=== PATIENT | female | born 1985 | race Caucasian/White ===

== ENCOUNTER 2017-02-03 06:50 | Emergency (ER) | payer MEDICAID ==
[2017-02-03 07:04] VITALS: BP 157/85
--- NOTE | 2017-02-06 06:51 | ED Elopement Review ---
ED Pt Elopement review - Call Back decision Pt Call Back Decision: No action required
== END 2017-02-03 15:15 ==
LOC: ED 06:50
DX: R10.9 Unspecified abdominal pain (principal); Z53.21 Procedure and treatment not carried out due to patient leaving prior to being seen by health care provider

== ENCOUNTER 2017-05-17 07:06 | Emergency (ER) | payer MEDICAID ==
[2017-05-17 07:21] VITALS: BP 139/61
[2017-05-17 07:44] LABS: Basophils % (Auto) 0.7 % (0.0-1.8); Eosinophils % (Auto) 1.2 % (0.0-4.3); Hematocrit 36.1 % (30.3-42.9); Hemoglobin 11.7 gm/dl (10.1-14.3); Mean Corpuscular HGB Conc 32 % (30-34); Mean Corpuscular Hemoglobin 27 pg (28-32); Mean Corpuscular Volume 82 fl (79-97); Platelet Count 184 K/mm3 (140-440); Red Cell Distribution Width 14.5 % (13.2-15.2); White Blood Count 10.3 K/mm3 (4.5-11.0)
[2017-05-17 08:30] LABS: Alanine Aminotransferase 12 units/L (7-56); Albumin 3.4 g/dL (3.9-5); Albumin/Globulin Ratio 0.9 %; Alkaline Phosphatase 62 units/L (35-129); Anion Gap 16 mmol/L; BUN/Creatinine Ratio 22.85; Blood Urea Nitrogen 16 mg/dL (7-17); Calcium 8.6 mg/dL (8.4-10.2); Carbon Dioxide 25 mmol/L (22-30); Chloride 103.4 mmol/L (98-107); Glucose 112 mg/dL (65-100); Lipase 45 units/L (13-60); Potassium 4.1 mmol/L (3.6-5.0); Sodium 140 mmol/L (137-145); Total Protein 7.2 g/dL (6.3-8.2)
[2017-05-17 10:39] LABS: Bilirubin,Urine NEG (Negative); Blood,Urine NEG (Negative); Ketones,Urine NEG (Negative); Leukocyte Esterase,Urine MOD (Negative); Nitrite,Urine NEG (Negative); Protein,Urine <15 mg/dL mg/dL (Negative); Urobilinogen,Urine < 2.0 mg/dL (<2.0)
== END 2017-05-17 07:35 | disposition left against medical advice (07) ==
LOC: ED 07:06
DX: R10.30 Lower abdominal pain, unspecified (principal); J45.909 Unspecified asthma, uncomplicated; E66.01 Morbid (severe) obesity due to excess calories; Z53.21 Procedure and treatment not carried out due to patient leaving prior to being seen by health care provider
CPT/HCPCS: 36415; 80053; 81001; 83690; 84703; 85025

== ENCOUNTER 2017-05-28 05:48 | Emergency (ER) | payer MEDICAID ==
[2017-05-28 06:25] LABS: Basophils % (Auto) 0.6 % (0.0-1.8); Eosinophils % (Auto) 1.1 % (0.0-4.3); Hematocrit 34.7 % (30.3-42.9); Hemoglobin 11.3 gm/dl (10.1-14.3); Mean Corpuscular HGB Conc 33 % (30-34); Mean Corpuscular Hemoglobin 27 pg (28-32); Mean Corpuscular Volume 82 fl (79-97); Platelet Count 196 K/mm3 (140-440); Red Blood Count 4.22 M/mm3 (3.65-5.03); Red Cell Distribution Width 14.2 % (13.2-15.2); White Blood Count 9.3 K/mm3 (4.5-11.0)
[2017-05-28 06:36] LABS: Alanine Aminotransferase 11 units/L (7-56); Albumin 3.3 g/dL (3.9-5); Albumin/Globulin Ratio 0.9 %; Alkaline Phosphatase 54 units/L (35-129); Anion Gap 17 mmol/L; BUN/Creatinine Ratio 17.14; Blood Urea Nitrogen 12 mg/dL (7-17); Calcium 8.2 mg/dL (8.4-10.2); Carbon Dioxide 23 mmol/L (22-30); Chloride 101.6 mmol/L (98-107); Glucose 147 mg/dL (65-100); Lipase 43 units/L (13-60); Potassium 3.7 mmol/L (3.6-5.0); Sodium 138 mmol/L (137-145); Total Protein 6.8 g/dL (6.3-8.2)
--- NOTE | 2017-05-28 08:58 | Emergency Department Report ---
ED Abdominal Pain HPI - General Chief Complaint: Abdominal Pain Stated Complaint: ABD PAIN Time Seen by Provider: 05/28/17 08:57 Source: patient Mode of arrival: Ambulatory Limitations: No Limitations - History of Present Illness Initial Comments: She complained of lower abdominal discomfort which was crampy and intermittent and now resolved. She states that she had diarrhea for 4-5 days. She is concerned that because she had a break in her water line at home she might have drank contaminated water. She states the diarrhea is improving. She has no nausea or vomiting. She's had no signs of GI bleeding. She is not in any discomfort at the present time. She states her colostomy bag is empty well. She denies fever or chills. MD Complaint: abdominal pain -: Gradual, days(s) Location: LLQ, RLQ Radiation: none Migration to: no migration Severity: mild Severity scale (0 -10): 4 Quality: stabbing Consistency: intermittent, now resolved Improves With: nothing Worsens With: nothing Context: other (history of colitis) Associated Symptoms: denies other symptoms - Related Data Previous Rx's Medication Instructions Recorded Last Taken Type Ciprofloxacin HCl [Ciprofloxacin 500 mg PO BID #20 tablet 09/22/16 Unknown Rx TAB] metroNIDAZOLE [Flagyl] 500 mg PO Q12HR #20 tab 09/22/16 Unknown Rx traMADol [Ultram] 50 mg PO Q6HR PRN #10 tablet 05/28/17 Unknown Rx Allergies Allergy/AdvReac Type Severity Reaction Status Date / Time No Known Allergies Allergy Verified 05/17/17 07:16 ED Review of Systems ROS: Stated complaint: ABD PAIN Other details as noted in HPI Constitutional: denies: chills, fever Eyes: denies: eye pain, eye discharge, vision change ENT: denies: ear pain, throat pain Respiratory: denies: cough, shortness of breath, wheezing Cardiovascular: denies: chest pain, palpitations Endocrine: no symptoms reported Gastrointestinal: abdominal pain, diarrhea. denies: nausea Genitourinary: denies: urgency, dysuria, discharge Musculoskeletal: denies: back pain, joint swelling, arthralgia Skin: denies: rash, lesions Neurological: denies: headache, weakness, paresthesias Psychiatric: denies: anxiety, depression Hematological/Lymphatic: denies: easy bleeding, easy bruising ED Past Medical Hx - Past Medical History Previous Medical History?: Yes Hx Diabetes: No Hx Liver Disease: No Hx Renal Disease: No Hx Sickle Cell Disease: No Hx Seizures: No Hx Asthma: Yes (SINCE CHILDHOOD) Hx COPD: No Hx HIV: No Additional medical history: DIVERTICULITIS. MORBID OBESITY/ colostomy - Surgical History Past Surgical History?: Yes Additional Surgical History: "WASHED STOMACH OUT-LEAKING INTESTINES". COLOSTOMY - Social History Smoking Status: Never Smoker Substance Use Type: None - Medications Home Medications: Home Medications Medication Instructions Recorded Confirmed Last Taken Type Ciprofloxacin HCl [Ciprofloxacin 500 mg PO BID #20 tablet 09/22/16 Unknown Rx TAB] metroNIDAZOLE [Flagyl] 500 mg PO Q12HR #20 tab 09/22/16 Unknown Rx traMADol [Ultram] 50 mg PO Q6HR PRN #10 tablet 05/28/17 Unknown Rx ED Physical Exam - General Limitations: No Limitations General appearance: alert, in no apparent distress - Head Head exam: Present: atraumatic, normocephalic - Eye Eye exam: Present: normal appearance. Absent: scleral icterus - ENT ENT exam: Present: normal exam, mucous membranes moist - Neck Neck exam: Present: normal inspection. Absent: tenderness, meningismus - Respiratory Respiratory exam: Present: normal lung sounds bilaterally. Absent: respiratory distress - Cardiovascular Cardiovascular Exam: Present: regular rate, normal rhythm. Absent: systolic murmur, diastolic murmur, rubs, gallop - GI/Abdominal GI/Abdominal exam: Present: soft, normal bowel sounds, other (colostomy bag with stool present). Absent: distended, tenderness, guarding, rebound, rigid - Extremities Exam Extremities exam: Present: normal inspection - Back Exam Back exam: Present: normal inspection - Neurological Exam Neurological exam: Present: alert, oriented X3, CN II-XII intact. Absent: motor sensory deficit - Psychiatric Psychiatric exam: Present: normal affect, normal mood - Skin Skin exam: Present: warm, dry, intact, normal color. Absent: rash ED Course Vital Signs 05/28/17 05/28/17 05:50 08:25 Temperature 98.6 F Pulse Rate 83 Respiratory 20 20 Rate Blood Pressure 148/92 [Right] O2 Sat by Pulse 96 96 Oximetry - Reevaluation(s) Reevaluation #1: Patient is appropriate for outpatient management. She will have stool studies sent. She has not recently been in the hospital. 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 05/28/17 09:12 ED Medical Decision Making - Lab Data Result diagrams: 05/28/17 05:58 05/28/17 05:58 Laboratory Results - last 24 hr 05/28/17 05/28/17 05/28/17 05:58 05:58 05:58 WBC 9.3 RBC 4.22 Hgb 11.3 Hct 34.7 MCV 82 MCH 27 L MCHC 33 RDW 14.2 Plt Count 196 Lymph % (Auto) 25.6 [place] % (Auto) 4.9 Eos % (Auto) 1.1 Baso % (Auto) 0.6 Lymph # 2.4 [place] # 0.5 Eos # 0.1 Baso # 0.1 Seg Neutrophils % 67.8 Seg Neutrophils # 6.3 Sodium 138 Potassium 3.7 Chloride 101.6 Carbon Dioxide 23 Anion Gap 17 BUN 12 Creatinine 0.7 Estimated GFR > 60 BUN/Creatinine Ratio 17.14 Glucose 147 H Calcium 8.2 L Total Bilirubin 0.30 AST 14 ALT 11 Alkaline Phosphatase 54 Total Protein 6.8 Albumin 3.3 L Albumin/Globulin Ratio 0.9 Lipase 43 HCG, Qual Negative Critical care attestation.: If time is entered above; I have spent that time in minutes in the direct care of this critically ill patient, excluding procedure time. ED Disposition Clinical Impression: Hyperglycemia Diarrhea Qualifiers: Diarrhea type: unspecified type Qualified Code(s): R19.7 - Diarrhea, unspecified Abdominal pain Qualifiers: Abdominal location: unspecified location Qualified Code(s): R10.9 - Unspecified abdominal pain Disposition: - TO HOME OR SELFCARE Is pt being admited?: No Does the pt Need Aspirin: No Condition: Stable Instructions: Abdominal Pain (ED), Acute Diarrhea (ED), Diabetic Hyperglycemia (ED) Additional Instructions: Follow-up with Dr. Hammonds, your primary care doctor or GI specialist see referral for results of your stool test. Return any acute change or problem. There is a possibility of type 2 diabetes. Follow-up on that. Prescriptions: traMADol [Ultram] 50 mg PO Q6HR PRN #10 tablet PRN Reason: Pain Referrals: PRIMARY CAREMD [Primary Care Provider] - 3-5 Days ROSANNA HAMMONDS MD [Staff Physician] - 2-3 Days [facility] [Provider Group] - 2-3 Days Time of Disposition: 09:15
[2017-05-28 09:34] VITALS: BP 138/89
== END 2017-05-28 09:34 | disposition home or self-care (01) ==
LOC: ED 05:48
DX: R73.9 Hyperglycemia, unspecified (principal); J45.909 Unspecified asthma, uncomplicated; R10.9 Unspecified abdominal pain; R19.7 Diarrhea, unspecified
CPT/HCPCS: 36415; 80053; 83690; 84703; 85007; 85025; 87045; 87177; 87493; 99283

== ENCOUNTER 2018-08-03 09:14 | Emergency (ER) | payer SELFPAY ==
[2018-08-03 09:47] VITALS: BP 150/88
[2018-08-03 10:49] LABS: Bacteria,Urine 1+ /HPF (Negative); Bilirubin,Urine NEG (Negative); Blood,Urine NEG (Negative); Color,Urine Yellow (Yellow); Mucus,Urine FEW /HPF; Protein,Urine <15 mg/dL mg/dL (Negative); Urobilinogen,Urine < 2.0 mg/dL (<2.0)
[2018-08-03 11:06] LABS: Basophils # (Auto) 0.1 K/mm3 (0.0-0.1); Basophils % (Auto) 0.7 % (0.0-1.8); Eosinophils # (Auto) 0.1 K/mm3 (0.0-0.4); Eosinophils % (Auto) 1.6 % (0.0-4.3); Hematocrit 30.8 % (30.3-42.9); Hemoglobin 9.7 gm/dl (10.1-14.3); Lymphocytes % (Auto) 22.1 % (13.4-35.0); Mean Corpuscular HGB Conc 32 % (30-34); Mean Corpuscular Volume 74 fl (79-97); Monocytes # (Auto) 0.6 K/mm3 (0.0-0.8); Monocytes % (Auto) 6.5 % (0.0-7.3); Platelet Count 192 K/mm3 (140-440); Red Blood Count 4.19 M/mm3 (3.65-5.03); Red Cell Distribution Width 17.6 % (13.2-15.2)
[2018-08-03 11:12] LABS: Mean Corpuscular Hemoglobin 23 pg (28-32)
[2018-08-03 11:18] LABS: Alanine Aminotransferase 11 units/L (7-56); Albumin 3.5 g/dL (3.9-5); BUN/Creatinine Ratio 25; Blood Urea Nitrogen 15 mg/dL (7-17); Calcium 8.6 mg/dL (8.4-10.2); Hemolysis Index 7
--- NOTE | 2018-08-03 11:20 | Emergency Department Report ---
ED General Adult HPI - General Chief complaint: Abdominal Pain Stated complaint: STOMACH PAIN Time Seen by Provider: 08/03/18 10:03 Source: patient Mode of arrival: Ambulatory Limitations: No Limitations - History of Present Illness Initial comments: She presents to the emergency department with chief complaint of lower abdominal cramping 5 days. Patient states that she has a foul odor to her urine but denies any vaginal discharge or bleeding. Patient denies concerned for STDs. Patient has no other complaints. -: Gradual Location: abdomen Radiation: non-radiation Severity scale (0 -10): 3 Quality: burning, dull Consistency: constant Improves with: none Worsens with: none Associated Symptoms: denies other symptoms Treatments Prior to Arrival: none - Related Data Previous Rx's Medication Instructions Recorded Last Taken Type Ciprofloxacin HCl [Ciprofloxacin 500 mg PO BID #20 tablet 09/22/16 Unknown Rx TAB] metroNIDAZOLE [Flagyl] 500 mg PO Q12HR #20 tab 09/22/16 Unknown Rx traMADol [Ultram] 50 mg PO Q6HR PRN #10 tablet 05/28/17 Unknown Rx Cephalexin [Keflex] 500 mg PO QID #28 capsule 08/03/18 Unknown Rx Phenazopyridine [Pyridium] 200 mg PO TID #6 tab 08/03/18 Unknown Rx Allergies Allergy/AdvReac Type Severity Reaction Status Date / Time No Known Allergies Allergy Verified 05/17/17 07:16 ED Review of Systems ROS: Stated complaint: STOMACH PAIN Other details as noted in HPI Comment: All other systems reviewed and negative Constitutional: denies: chills, fever Eyes: denies: eye pain, eye discharge, vision change ENT: denies: ear pain, throat pain Respiratory: denies: cough, shortness of breath, wheezing Cardiovascular: denies: chest pain, palpitations Endocrine: no symptoms reported Gastrointestinal: denies: abdominal pain, nausea, diarrhea Genitourinary: denies: urgency, dysuria, discharge Musculoskeletal: denies: back pain, joint swelling, arthralgia Skin: denies: rash, lesions Neurological: denies: headache, weakness, paresthesias Psychiatric: denies: anxiety, depression Hematological/Lymphatic: denies: easy bleeding, easy bruising ED Past Medical Hx - Past Medical History Hx Diabetes: No Hx Liver Disease: No Hx Renal Disease: No Hx Sickle Cell Disease: No Hx Seizures: No Hx Asthma: Yes (SINCE CHILDHOOD) Hx COPD: No Hx HIV: No Additional medical history: DIVERTICULITIS. MORBID OBESITY/ colostomy - Surgical History Additional Surgical History: "WASHED STOMACH OUT-LEAKING INTESTINES". COLOSTOMY - Social History Smoking Status: Never Smoker Substance Use Type: Alcohol - Medications Home Medications: Home Medications Medication Instructions Recorded Confirmed Last Taken Type Ciprofloxacin HCl [Ciprofloxacin 500 mg PO BID #20 tablet 09/22/16 Unknown Rx TAB] metroNIDAZOLE [Flagyl] 500 mg PO Q12HR #20 tab 09/22/16 Unknown Rx traMADol [Ultram] 50 mg PO Q6HR PRN #10 tablet 05/28/17 Unknown Rx Cephalexin [Keflex] 500 mg PO QID #28 capsule 08/03/18 Unknown Rx Phenazopyridine [Pyridium] 200 mg PO TID #6 tab 08/03/18 Unknown Rx ED Physical Exam - General Limitations: No Limitations General appearance: alert, in no apparent distress - Head Head exam: Present: atraumatic, normocephalic - Eye Eye exam: Present: normal appearance - ENT ENT exam: Present: mucous membranes moist - Neck Neck exam: Present: normal inspection - Respiratory Respiratory exam: Present: normal lung sounds bilaterally. Absent: respiratory distress, wheezes, rales, rhonchi - Cardiovascular Cardiovascular Exam: Present: regular rate, normal rhythm. Absent: systolic murmur, diastolic murmur, rubs, gallop - GI/Abdominal GI/Abdominal exam: Present: soft, normal bowel sounds. Absent: distended, tenderness - Extremities Exam Extremities exam: Present: normal inspection - Back Exam Back exam: Present: normal inspection - Neurological Exam Neurological exam: Present: alert, oriented X3, CN II-XII intact. Absent: motor sensory deficit - Psychiatric Psychiatric exam: Present: normal affect, normal mood - Skin Skin exam: Present: warm, dry, intact, normal color. Absent: rash ED Course Vital Signs 08/03/18 09:44 Temperature 98.4 F Pulse Rate 18 L Respiratory 18 Rate Blood Pressure 150/88 O2 Sat by Pulse 100 Oximetry ED Medical Decision Making - Lab Data Result diagrams: 08/03/18 10:45 08/03/18 10:45 - Medical Decision Making Discussed results with the patient Critical care attestation.: If time is entered above; I have spent that time in minutes in the direct care of this critically ill patient, excluding procedure time. ED Disposition Clinical Impression: UTI (urinary tract infection) Disposition: DC- TO HOME OR SELFCARE Is pt being admited?: No Does the pt Need Aspirin: No Condition: Stable Instructions: Urinary Tract Infection in Women (ED) Additional Instructions: Return if worse Prescriptions: Cephalexin [Keflex] 500 mg PO QID #28 capsule Phenazopyridine [Pyridium] 200 mg PO TID #6 tab Referrals: PRIMARY CARE, [Primary Care Provider] - 3-5 Days Time of Disposition: 12:31
[2018-08-03 12:03] LABS: HCG Qualitative,Urine Negative (Negative)
== END 2018-08-03 12:39 | disposition home or self-care (01) ==
LOC: ED 09:14
DX: N39.0 Urinary tract infection, site not specified (principal); J45.909 Unspecified asthma, uncomplicated; E66.01 Morbid (severe) obesity due to excess calories
CPT/HCPCS: 36415; 80053; 81001; 81025; 85025; 99283

== ENCOUNTER 2018-12-31 11:55 | Emergency (ER) | payer MEDICAID ==
--- NOTE | 2018-12-31 12:32 | Emergency Department Report ---
Blank Doc - Documentation Documentation: Pt is 7 weeks gestation. The patient has not been seen for this . She is c/o lower abdominal cramping and vaginal spotting. She just notices when she wipes. Her LNMP was 11/06/18. She has a hx of diverticulitis with ostomy placement. She denies any blood thinners. /A2 This initial assessment diagnostic orders/clinical plan/treatment (s) is/Are subject change based on patient's health status, clinical progression and re- assessment by fellow clinical providers in the ED. Further treatment and work-up at subsequent clinical providers discretion. Patient/guardians urged not to elope from their condition may be serious if not clinically assessed and managed. Initial order include: vaginal US, UA, ABO and type, labs
[2018-12-31 13:16] LABS: Basophils # (Auto) 0.1 K/mm3 (0.0-0.1); Eosinophils # (Auto) 0.1 K/mm3 (0.0-0.4); Eosinophils % (Auto) 1.7 % (0.0-4.3); Hematocrit 28.5 % (30.3-42.9); Hemoglobin 9.1 gm/dl (10.1-14.3); Lymphocytes % (Auto) 23.8 % (13.4-35.0); Mean Corpuscular HGB Conc 32 % (30-34); Mean Corpuscular Volume 71 fl (79-97); Monocytes # (Auto) 0.5 K/mm3 (0.0-0.8); Monocytes % (Auto) 6.2 % (0.0-7.3); Platelet Count 208 K/mm3 (140-440); Red Blood Count 4.04 M/mm3 (3.65-5.03); Red Cell Distribution Width 18.6 % (13.2-15.2)
[2018-12-31 13:32] LABS: Bacteria,Urine 1+ /HPF (Negative); Bilirubin,Urine NEG (Negative); Blood,Urine SM (Negative); Color,Urine Yellow (Yellow); Protein,Urine <15 mg/dL mg/dL (Negative); Urobilinogen,Urine < 2.0 mg/dL (<2.0)
[2018-12-31 13:39] LABS: Alanine Aminotransferase 9 units/L (7-56); Albumin 3.4 g/dL (3.9-5); BUN/Creatinine Ratio 28; Blood Urea Nitrogen 14 mg/dL (7-17); Calcium 8.4 mg/dL (8.4-10.2); Hemolysis Index 5
--- NOTE | 2018-12-31 16:40 | Emergency Department Report ---
<ISIDRA MORTON - Last Filed: 12/31/18 16:39> ED HPI - General Chief complaint: Vaginal Bleeding Stated complaint: 7WKS/BLEEDING/PAIN Time Seen by Provider: 12/31/18 12:27 Source: patient Mode of arrival: Ambulatory Limitations: No Limitations - History of Present Illness Initial comments: is a 33-year-old female who is presenting with some lower abdominal crampiness last 2 days with some vaginal bleeding. Patient states that bleeding is spotting in nature. She denies any nausea vomiting diarrhea f talya chills or dysuria at this time. - Related Data Previous Rx's Medication Instructions Recorded Last Taken Type Ciprofloxacin HCl [Ciprofloxacin 500 mg PO BID #20 tablet 09/22/16 Unknown Rx TAB] metroNIDAZOLE [Flagyl] 500 mg PO Q12HR #20 tab 09/22/16 Unknown Rx traMADol [Ultram] 50 mg PO Q6HR PRN #10 tablet 05/28/17 Unknown Rx Phenazopyridine [Pyridium] 200 mg PO TID #6 tab 08/03/18 Unknown Rx Cephalexin [Keflex] 500 mg PO DAILY #10 capsule 10/05/18 Unknown Rx Hydrocortisone 1% [Hydrocortisone 1 applicatio TP TID #1 tube 10/05/18 Unknown Rx 1% CREAM] predniSONE [Deltasone] 20 mg PO DAILY #3 tablet 10/05/18 Unknown Rx Allergies Allergy/AdvReac Type Severity Reaction Status Date / Time No Known Allergies Allergy Verified 12/31/18 12:29 ED Review of Systems Comment: All other systems reviewed and negative ED Past Medical Hx - Past Medical History Hx Diabetes: No Hx Liver Disease: No Hx Renal Disease: No Hx Sickle Cell Disease: No Hx Seizures: No Hx Asthma: Yes (SINCE CHILDHOOD) Hx COPD: No Hx HIV: No Additional medical history: DIVERTICULITIS. MORBID OBESITY/ colostomy - Surgical History Additional Surgical History: "WASHED STOMACH OUT-LEAKING INTESTINES". COLOSTOMY - Social History Smoking Status: Never Smoker Substance Use Type: None - Medications Home Medications: Home Medications Medication Instructions Recorded Confirmed Last Taken Type Ciprofloxacin HCl [Ciprofloxacin 500 mg PO BID #20 tablet 09/22/16 Unknown Rx TAB] metroNIDAZOLE [Flagyl] 500 mg PO Q12HR #20 tab 09/22/16 Unknown Rx traMADol [Ultram] 50 mg PO Q6HR PRN #10 tablet 05/28/17 Unknown Rx Phenazopyridine [Pyridium] 200 mg PO TID #6 tab 08/03/18 Unknown Rx Cephalexin [Keflex] 500 mg PO DAILY #10 capsule 10/05/18 Unknown Rx Hydrocortisone 1% [Hydrocortisone 1 applicatio TP TID #1 tube 10/05/18 Unknown Rx 1% CREAM] predniSONE [Deltasone] 20 mg PO DAILY #3 tablet 10/05/18 Unknown Rx ED Physical Exam - General Limitations: No Limitations General appearance: alert, in no apparent distress - Head Head exam: Present: atraumatic, normocephalic - Eye Eye exam: Present: normal appearance - ENT ENT exam: Present: mucous membranes moist - Neck Neck exam: Present: normal inspection - Respiratory Respiratory exam: Present: normal lung sounds bilaterally. Absent: respiratory distress, wheezes, rales, rhonchi - Cardiovascular Cardiovascular Exam: Present: regular rate, normal rhythm. Absent: systolic murmur, diastolic murmur, rubs, gallop - GI/Abdominal GI/Abdominal exam: Present: soft, normal bowel sounds. Absent: distended, tend erness, guarding, rebound, rigid - Extremities Exam Extremities exam: Present: normal inspection - Back Exam Back exam: Present: normal inspection - Neurological Exam Neurological exam: Present: alert, oriented X3 - Psychiatric Psychiatric exam: Present: normal affect, normal mood - Skin Skin exam: Present: warm, dry, intact, normal color. Absent: rash ED Medical Decision Making - Lab Data Result diagrams: 12/31/18 12:56 12/31/18 12:56 Labs 12/31/18 12/31/18 12/31/18 12:56 12:56 12:56 WBC 8.2 RBC 4.04 Hgb 9.1 L Hct 28.5 L MCV 71 L MCH 23 L MCHC 32 RDW 18.6 H Plt Count 208 Lymph % (Auto) 23.8 [place] % (Auto) 6.2 Eos % (Auto) 1.7 Baso % (Auto) 1.0 Lymph # 2.0 [place] # 0.5 Eos # 0.1 Baso # 0.1 Seg Neutrophils % 67.3 Seg Neutrophils # 5.5 Sodium 138 Potassium 3.9 Chloride 102.4 Carbon Dioxide 24 Anion Gap 16 BUN 14 Creatinine 0.5 L Estimated GFR > 60 BUN/Creatinine Ratio 28 Glucose 105 H Calcium 8.4 Total Bilirubin < 0.20 AST 15 ALT 9 Alkaline Phosphatase 59 Total Protein 6.9 Albumin 3.4 L Albumin/Globulin Ratio 1.0 HCG, Quant 89595 H Urine Color Urine Turbidity Urine pH Ur Specific [place] Urine Protein Urine Glucose (UA) Urine Ketones Urine Blood Urine Nitrite Urine Bilirubin Urine Urobilinogen Ur Leukocyte Esterase Urine WBC (Auto) Urine RBC (Auto) U Epithel Cells (Auto) Urine Bacteria (Auto) Blood Type Antibody Screen Ord Rhogam Gestat Weeks 12/31/18 12/31/18 12:56 Unknown WBC RBC Hgb Hct MCV MCH MCHC RDW Plt Count Lymph % (Auto) [place] % (Auto) Eos % (Auto) Baso % (Auto) Lymph # [place] # Eos # Baso # Seg Neutrophils % Seg Neutrophils # Sodium Potassium Chloride Carbon Dioxide Anion Gap BUN Creatinine Estimated GFR BUN/Creatinine Ratio Glucose Calcium Total Bilirubin AST ALT Alkaline Phosphatase Total Protein Albumin Albumin/Globulin Ratio HCG, Quant Urine Color Yellow Urine Turbidity Clear Urine pH 5.0 Ur Specific [place] 1.024 Urine Protein <15 mg/dl Urine Glucose (UA) Neg Urine Ketones Neg Urine Blood Sm Urine Nitrite Neg Urine Bilirubin Neg Urine Urobilinogen < 2.0 Ur Leukocyte Esterase Sm Urine WBC (Auto) 5.0 Urine RBC (Auto) 1.0 U Epithel Cells (Auto) 8.0 Urine Bacteria (Auto) 1+ Blood Type A NEGATIVE Antibody Screen Negative Ord Rhogam Gestat Weeks <11 ED Disposition Clinical Impression: Threatened , Subchorionic hemorrhage in first trimester, Vaginal bleeding during Disposition: DC-01 TO HOME OR SELFCARE Condition: Stable Instructions: Threatened Miscarriage (ED), (ED) Additional Instructions: Make sure to follow up with the CLICKING MACHINE OPERATOR as discussed. Take all your medications as you've been prescribed. If you have any worsening symptoms or develop new symptoms please return to ED immediately. Referrals: ELIZABETH CLAYTON MD [Primary Care Provider] - 3-5 Days TRISTEN STEIN MD [Referring] - 3-5 Days JYOTI STEIN MD [Referring] - 3-5 Days ERENDIRA BUTLER MD [Referring] - 3-5 Days Forms: Accompanied Note, Work/School Release Form(ED) <NIMA KERN - Last Filed: 01/01/19 10:50> ED Review of Systems ROS: Stated complaint: 7WKS/BLEEDING/PAIN Other details as noted in HPI ED Course Vital Signs 12/31/18 12/31/18 12/31/18 12:27 15:21 18:05 Temperature 97.5 F L 98.8 F 97.8 F Pulse Rate 99 H 81 88 Respiratory 18 16 Rate Blood Pressure 157/84 163/81 Blood Pressure 166/90 [Left] O2 Sat by Pulse 100 100 Oximetry ED Medical Decision Making - Lab Data Result diagrams: 12/31/18 12:56 12/31/18 12:56 - Radiology Data Radiology results: report reviewed, image reviewed FINDINGS: Images demonstrate uterus to measure 12.5 x 7.5 x 7.8 cm. Within the uterus, there is a gestational sac. This gestational sac contains a yolk sac and a pole. heart rate measures 113 bpm. By crown-rump length of 5.4 mm, estimated gestational age is 6 weeks 2 days. There is a small subchorionic bleed measuring 0.9 x 1.3 x 1.4 cm. Right ovary measures 2.7 x 2.7 x 2.7 cm and contains a 2.4 cm cystic lesion which may represent a corpus luteal cyst . Left ovary measures 2.0 x 0.9 x 2.1 cm and is within normal limits. No free pelvic fluid. IMPRESSION: Single live intrauterine gestation at 6 weeks 2 days with estimated due date of 08/24/2019. Small subchorionic hemorrhage measuring 0.9 x 1.3 x 1.4 cm. Right ovarian 2.4 cm cystic lesion may represent corpus luteal cyst of . No free fluid.. This document is electronically signed by Maria Esther Hernandez MD., December 31 2018 05:11:30 PM ET Transcribed By: MP Dictated By: MARIA ESTHER HERNANDEZ Electronically Authenticated By: MARIA ESTHER HERNANDEZ Signed Date/Time: 12/31/18 6724 - Medical Decision Making 33-year-old female presents with bleeding during . Ultrasound shows patient has 6 weeks gestation. Patient received RhoGAM shot in the ED today at 3 PM. Discussed the patient to follow up with her CLICKING MACHINE OPERATOR. Referrals given Discussed with the patient, if symptoms worsen or she has new onset of symptoms to return to ED immediately. Critical care attestation.: If time is entered above; I have spent that time in minutes in the direct care of this critically ill patient, excluding procedure time. ED Disposition Is pt being admited?: No Does the pt Need Aspirin: No Time of Disposition: 17:57
--- NOTE | 2018-12-31 17:14 | Ultrasound Report ---
PROCEDURE: US OB TRANSVAGINAL, US OB <= 14 WEEKS FETUS TECHNIQUE: Transvaginal and transvesical pelvic obstetric sonographic imaging was performed HISTORY: 7 weeks gestation per LNMP LMP 11/06/2018, pelvic pain, 4, para 2 COMPARISONS: None FINDINGS: Images demonstrate uterus to measure 12.5 x 7.5 x 7.8 cm. Within the uterus, there is a gestational sac. This gestational sac contains a yolk sac and a p ole. heart rate measures 113 bpm. By crown-rump length of 5.4 mm, estimated gestational age is 6 weeks 2 days. There is a small subchorionic bleed measuring 0.9 x 1.3 x 1.4 cm. Right ovary measures 2.7 x 2.7 x 2.7 cm and contains a 2.4 cm cystic lesion which may represent a cor pus luteal cyst . Left ovary measures 2.0 x 0.9 x 2.1 cm and is within normal limits. No free pelvic fluid. IMPRESSION: Single live intrauterine gestation at 6 weeks 2 days with estimated due date of 08/24/2019. Small subchorionic hemorrhage measuring 0.9 x 1.3 x 1.4 cm. Right ovarian 2.4 cm cystic lesion may represent corpus luteal cyst of . No free fluid.. This document is electronically signed by Maria Esther Hernandez MD., December 31 2018 05:11:30 PM ET
[2018-12-31 18:41] VITALS: BP 166/90
== END 2018-12-31 18:05 | disposition home or self-care (01) ==
LOC: ED 11:55
DX: O20.0 Threatened abortion (principal); O99.511 Diseases of the respiratory system complicating pregnancy, first trimester; J45.909 Unspecified asthma, uncomplicated; O99.211 Obesity complicating pregnancy, first trimester; E66.01 Morbid (severe) obesity due to excess calories; Z3A.01 Less than 8 weeks gestation of pregnancy
CPT/HCPCS: 36415; 76801; 76817; 80053; 81001; 84702; 85025; 86850; 86900; 86901; 96372; 99284; J2790; 36430

== ENCOUNTER 2019-07-13 10:22 | Emergency (ER) | payer OTHER ==
[2019-07-13 10:30] VITALS: BP 160/73
--- NOTE | 2019-07-13 11:21 | Emergency Department Report ---
Minor Respiratory - HPI Chief Complaint: Upper Respiratory Infection Stated Complaint: POSS SINUS INFECTION Time Seen by Provider: 07/13/19 10:55 Duration: 2 Days Pain Location: Nose, Chest Severity: mild, moderate Minor Respiratory: Yes Sore Throat, Yes Able to Tolerate Fluids, Yes Cough, No Rhinorrhea, No Ear Pain, No Sick Contacts, No Hemoptysis, No Chest Pain, No S hortness of Breath, No Fever Other History: This is a 33-year-old female presents to ED complaining of cough cold and congestion for the past couple days. Patient states that she has nasal congestion with a nonproductive intermittent coughing. Patient denies throat pain, fever, nausea vomiting. ED Review of Systems ROS: Stated complaint: POSS SINUS INFECTION Other details as noted in HPI Comment: All other systems reviewed and negative ED Past Medical Hx - Past Medical History Previous Medical History?: Yes Hx Diabetes: No Hx Liver Disease: No Hx Renal Disease: No Hx Sickle Cell Disease: No Hx Seizures: No Hx Asthma: Yes (SINCE CHILDHOOD) Hx COPD: No Hx HIV: No Additional medical history: DIVERTICULITIS. MORBID OBESITY/ colostomy - Surgical History Past Surgical History?: Yes Additional Surgical History: "WASHED STOMACH OUT-LEAKING INTESTINES". COLOSTOMY - Social History Smoking Status: Never Smoker Substance Use Type: Alcohol - Medications Home Medications: Home Medications Medication Instructions Recorded Confirmed Last Taken Type traMADol [Ultram] 50 mg PO Q6HR PRN #10 tablet 01/21/19 Unknown Rx ALBUTEROL Inhaler (OR & NICU) 2 puff IH QID PRN #1 inhalation 07/13/19 Unknown Rx [ProAir HFA Inhaler] Benzonatate [Tessalon Perles] 100 mg PO Q8HR #20 capsule 07/13/19 Unknown Rx Minor Respiratory Exam - Exam General: Vital signs noted. No distress. Alert and acting appropriately. HEENT: Yes Moist Mucous Membranes, Yes Frontal Tenderness, Yes Maxillary Tenderness, No Pharyngeal Erythema, No Pharyngeal Exudates, No Rhinorrhea, No Conjuctival Injection Ear: Neither TM Bulge, Neither TM Erythema, Neither EAC Pain, Neither EAC Discharge Neck: Yes Supple, No Adenopathy Lungs: Yes Good Air Exchange, No Wheezes, No Ronchi, No Stridor, No Cough, No Labored Respirations, No Retractions, No Use of Accessory Muscles, No Other Abnormal Lung Sounds Heart: Yes Regular, No Murmur Abdomen: Yes Normal Bowel Sounds, No Tenderness, No Peritoneal Signs Skin: No Rash, No Edema Neurologic: Alert and oriented, no deficits. Musculoskeletal: Unremarkable. ED Course Vital Signs 07/13/19 10:28 Temperature 98.0 F Pulse Rate 91 H Respiratory 16 Rate Blood Pressure 160/73 O2 Sat by Pulse 100 Oximetry ED Medical Decision Making - Radiology Data Radiology results: report reviewed, image reviewed Fluoro Time In Minutes: CHEST PA AND LATERAL VIEWS INDICATION: cogh. COMPARISON: None. FINDINGS: Support devices: None. Heart: Within normal limits. Lungs/Pleura: No acute pulmonary or pleural findings. IMPRESSION: 1. No significant abnormality. Signer Name: Randy Adams MD Signed: 07/13/2019 1:08 PM Workstation Name: [id number] Transcribed By: ADELE Dictated By: Randy Adams MD Electronically Authenticated By: Randy Adams MD Signed Date/Time: 07/13/19 1308 - Medical Decision Making 33-year-old female presents to the ED with bronchitis/sinusitis Chest x-ray shows no acute findings. Discussing results of 5 patient. Patient received Tylenol and Robitussin in ED Discussed patient with follow-up with primary care physician. Discussed [id number] Robitussin for relief of cough. Patient will be discharged her with Tessalon Perles and albuterol inhaler. Vital signs are normal patient is in no respiratory distress. Critical care attestation.: If time is entered above; I have spent that time in minutes in the direct care of this critically ill patient, excluding procedure time. ED Disposition Clinical Impression: Acute bronchitis Disposition: DC-01 TO HOME OR SELFCARE Is pt being admited?: No Does the pt Need Aspirin: No Condition: Stable Instructions: Acute Bronchitis (ED), Acute Cough (ED) Additional Instructions: Make sure to follow up with the primary care physician as discussed. Take all your medications as you've been prescribed. If you have any worsening symptoms or develop new symptoms please return to ED immediately. Prescriptions: ALBUTEROL Inhaler (OR & NICU) [ProAir HFA Inhaler] 2 puff IH QID PRN #1 inhalation PRN Reason: Shortness Of Breath Benzonatate [Tessalon Perles] 100 mg PO Q8HR #20 capsule Referrals: [facility] [Outside] - 3-5 Days [facility] [Outside] - 3-5 Days Forms: Accompanied Note, Work/School Release Form(ED) Time of Disposition: 14:09
[2019-07-13] MEDS ORDERED: ROBITUSSIN PO ONE (11:30)
[2019-07-13] MEDS ORDERED: TYLENOL PO ONE (11:30)
--- NOTE | 2019-07-13 13:13 | XRay Report ---
CHEST PA AND LATERAL VIEWS INDICATION: cogh. COMPARISON: None. FINDINGS: Support devices: None. Heart: Within normal limits. Lungs/Pleura: No acute pulmonary or pleural findings. IMPRESSION: 1. No significant abnormality. Signer Name: Randy Adams MD Signed: 07/13/2019 1:08 PM Workstation Name: [id number]
== END 2019-07-13 13:30 | disposition home or self-care (01) ==
LOC: ED 10:22
DX: J20.9 Acute bronchitis, unspecified (principal); J45.909 Unspecified asthma, uncomplicated; Z93.3 Colostomy status; E66.01 Morbid (severe) obesity due to excess calories; Z68.44 Body mass index [BMI] 60.0-69.9, adult
CPT/HCPCS: 71046; 99283

== ENCOUNTER 2020-03-29 12:18 | Outpatient (CLI) | payer OTHER | END 2020-03-30 15:20 | disposition home or self-care (01) | LOC: LAB 12:18 | PROVIDERS: ATTEND Obstetrics & Gynecology | DX: O26.893 Other specified pregnancy related conditions, third trimester (principal); Z3A.33 33 weeks gestation of pregnancy; Z67.11 Type A blood, Rh negative | CPT/HCPCS: 86850; 86900; 86901; 96372; J2790 ==

== ENCOUNTER 2020-04-19 08:49 | Inpatient (IN) | payer OTHER ==
[2020-04-19] MEDS ORDERED: LIDOCAINE (2%) 20 MG/1 ML VIAL 20 ML MDV INFILTRATI ONE (11:12)
[2020-04-19] MEDS ORDERED: fentaNYL 100 MCG/2 ML INJ IV PRN (11:12)
[2020-04-19] MEDS ORDERED: ePHEDrine SULFATE 50 MG/1 ML INJ IV PRN (11:12)
[2020-04-19] MEDS ORDERED: TERBUTALINE 1 MG/1 ML INJ IVP PRN (11:12)
[2020-04-19] MEDS ORDERED: PROMETHAZINE 25 MG TAB PO PRN (11:12)
[2020-04-19] MEDS ORDERED: BUTORPHANOL 2 MG/1 ML INJ IV PRN (11:12)
[2020-04-19] MEDS ORDERED: TERBUTALINE 1 MG/1 ML INJ SUB-Q PRN (11:12)
[2020-04-19] MEDS ORDERED: NALOXONE 0.4 MG/1 ML INJ IV PRN (11:12)
[2020-04-19] MEDS ORDERED: MINERAL OIL 30 ML ORAL LIQD PO PRN (11:12)
[2020-04-19] MEDS ORDERED: ONDANSETRON 4 MG/2 ML INJ IV PRN (11:12)
[2020-04-19] MEDS ORDERED: OXYTOCIN 20 UNIT/1000ML DRIP 20 UNITS/1,000 ML BAG IV SCH (12:00)
--- NOTE | 2020-04-19 12:10 | Ultrasound Report ---
Limited OB ultrasound INDICATION: Ultrasound to evaluate for presentation FINDINGS: There is a single intrauterine . The fetus is in a cephalic presentation. heart rate i s 135 bpm. IMPRESSION: Fetus is in a cephalic presentation. Signer Name: Norman Grove MD Signed: 04/19/2020 12:06 PM Workstation Name: [id number]
--- NOTE | 2020-04-19 12:36 | History and Physical Report ---
History of Present Illness Date of examination: 04/19/20 Date of admission: 04/19/20 08:49 Chief complaint: Here for induction History of present illness: Pt is a 34 yo at 39w4d who presents for induction of labor due to gestational diabetes and obesity. She reports positive movement and denies LOF, vaginal bleeding, or contractions. She has received care with [facility], co-managed with BASHIR and consult with Jr (report unavailable). Her course has been complicated by obesity, UTI treated, VSD, Rh negative status with Rhogam received in the third trimester, anemia with weekly IV iron infusions. Medical history is notable for diverting colostomy due to diverticulitis. She is GBS negative. Past History Past Medical History: other (diverticulitis) Past Surgical History: colorectal surgery (colostomy) Social history: no significant social history - Obstetrical History Expected Date of Delivery: 04/22/20 Actual Gestation: 39 Week(s) 4 Day(s) : 5 Para: 2 Spontaneous Abortions: 2 Number of Living Children: 2 Medications and Allergies Allergies Allergy/AdvReac Type Severity Reaction Status Date / Time No Known Allergies Allergy Verified 12/31/18 12:29 Home Medications Medication Instructions Recorded Confirmed Last Taken Type traMADoL [Ultram] 50 mg PO Q6HR PRN #10 tablet 01/21/19 Unknown Rx Albuterol INH(or & Nicu Only) 2 puff IH QID PRN #1 inhalation 07/13/19 Unknown Rx [ProAir HFA Inhaler] Benzonatate [Tessalon Perles] 100 mg PO Q8HR #20 capsule 07/13/19 Unknown Rx Nitrofurantoin [place]/M-Cryst 100 mg PO Q12HR #14 capsule 11/01/19 Unknown Rx [Macrobid CAP] 21/Iron Fu/Folic Acid 1 each PO DAILY #30 tablet 11/01/19 Unknown Rx [ Complete Caplet] Active Meds: Active Medications Butorphanol Tartrate (Stadol) 1 mg IV Q2H PRN PRN Reason: Pain, Moderate(4-6) LABOR PAIN Butorphanol Tartrate (Stadol) 2 mg IV Q2H PRN PRN Reason: Pain , Severe (7-10) Ephedrine Sulfate (Ephedrine Sulfate) 10 mg IV Q2M PRN PRN Reason: Hypotension Fentanyl (Sublimaze) 100 mcg IV Q2H PRN PRN Reason: Pain,Severe (7-10) LABOR PAIN Oxytocin/Sodium Chloride (Pitocin/Ns 20 Unit/1000ml Drip) 20 units in 1,000 mls @ 125 mls/hr IV DIRECT ADRIANA Lactated Ringer's (Lactated Ringers) 1,000 mls @ 125 mls/hr IV DIRECT ADRIANA Mineral Oil (Mineral Oil) 30 ml PO QHS PRN PRN Reason: Constipation Misoprostol (Cytotec) 25 mcg VG Q4H ADRIANA Naloxone HCl (Naloxone) 0.1 mg IV Q2MIN PRN PRN Reason: Res Rate </= 8 or 02 SAT < 92% Ondansetron HCl (Zofran) 4 mg IV Q8H PRN PRN Reason: Nausea And Vomiting Promethazine HCl (Phenergan) 25 mg PO Q6H PRN PRN Reason: Nausea And Vomiting Terbutaline Sulfate (Brethine) 0.25 mg SUB-Q ONCE PRN PRN Reason: Hyperstimulation/Hypertonicity Terbutaline Sulfate (Brethine) 0.25 mg IVP ONCE PRN PRN Reason: Hyperstimulation/Hypertonicity Review of Systems All systems: negative Genitourinary: no vaginal bleeding, no leakage of fluid, no contractions - Vital Signs Vital signs: Vital Signs Pulse Pulse Ox 58 L 74 L 04/19/20 10:03 04/19/20 10:03 Temp Pulse Resp BP Pulse Ox 98.3 F 89 118/66 100 04/19/20 11:17 04/19/20 12:28 04/19/20 10:51 04/19/20 12:28 - Physical Exam Lungs: Positive: Normal air movement Abdomen: Positive: soft, other (stoma appears beefy red). Negative: distention Uterus: Positive: enlarged (gravid) Extremities: Positive: normal - Obstetrical FHR: category 1 Uterine Contraction Monitor Mode: External Cervical Dilatation: 0.5 (per RN) Cervical Effacement Percentage: 0 station: -3 Uterine Contraction Pattern: Absent Results All other labs normal. Assessment and Plan A: 34 yo at 39w4d EGA Gestational diabetes, diagnosed 2 weeks ago, unmedicated VSD Rh negative Obesity Hx anemia this with weekly Fe infusions Cephalic by ultrasound P: Admit for IOL- Cytotec BG check q6hr Notify peds after delivery Rhogam workup pp Continuous EFM General surgeon to be present if is needed Anticipate
[2020-04-19] MEDS: LACTATED RINGERS 1,000 ML IV SCH (13:02)
[2020-04-19] MEDS: miSOPROStol 25 MCG TAB VG SCH ×3 (13:02→23:25)
[2020-04-19 13:25] LABS: Hematocrit 33.3 % (30.3-42.9); Hemoglobin 10.7 gm/dl (10.1-14.3); Mean Corpuscular HGB Conc 32 % (30-34); Mean Corpuscular Volume 81 fl (79-97); Platelet Count 154 K/mm3 (140-440)
[2020-04-19 13:29] LABS: Red Cell Distribution Width 26.7 % (13.2-15.2)
[2020-04-19 20:46] LABS: Alanine Aminotransferase 8 units/L (7-56); BUN/Creatinine Ratio 12; Blood Urea Nitrogen 6 mg/dL (7-17); Hemolysis Index 1; Uric Acid 4.6 mg/dL (3.5-7.6)
[2020-04-19] MEDS ORDERED: ACETAMINOPHEN 325 MG TAB PO PRN (21:11)
[2020-04-20] MEDS: BUTORPHANOL 2 MG/1 ML INJ IV PRN ×6 (02:59→15:27)
[2020-04-20] MEDS ORDERED: OXYTOCIN DRIP 30 UNITS/500 ML BAG IV SCH (08:00)
--- NOTE | 2020-04-20 08:08 | Progress Note ---
Assessment and Plan A: 34 yo at 39w5d EGA Gestational diabetes, diagnosed 2 weeks ago, unmedicated VSD Rh negative Obesity Hx anemia this with weekly Fe infusions P: Continue IOL- Low dose Pitocin BG check q6hr Notify peds after delivery Rhogam workup pp Continuous EFM General surgeon to be present if is needed Anticipate Subjective - Subjective Date of service: 04/20/20 Principal diagnosis: IOL for GDM, obesity Interval history: HD2 of IOL for GDM, obesity. 39w5d EGA. S/p Cytotec x3 doses. Patient reports: movement normal, contractions, no new complaints, no loss of fluid Objective - Vital Signs Vital Signs: Vital Signs - 12hr 04/19/20 04/19/20 04/19/20 20:11 20:12 20:16 Pulse Rate 113 H 108 H 97 H Respiratory Rate Blood Pressure O2 Sat by Pulse 95 86 87 Oximetry 04/19/20 04/19/20 04/19/20 20:21 20:23 20:26 Pulse Rate 101 H 98 H Respiratory Rate Blood Pressure O2 Sat by Pulse 90 72 L 90 Oximetry 04/19/20 04/19/20 04/19/20 20:30 20:32 20:35 Pulse Rate 93 H 96 H Respiratory Rate Blood Pressure 144/79 O2 Sat by Pulse 80 L 90 83 L Oximetry 04/19/20 04/19/20 04/19/20 20:37 20:42 20:46 Pulse Rate 97 H 92 H Respiratory Rate Blood Pressure O2 Sat by Pulse 94 93 90 Oximetry 04/19/20 04/19/20 04/19/20 20:47 20:52 20:59 Pulse Rate 97 H 167 H 34 L Respiratory Rate Blood Pressure O2 Sat by Pulse 82 L 84 81 L Oximetry 04/19/20 04/19/20 04/19/20 21:04 21:09 21:10 Pulse Rate 98 H 101 H Respiratory Rate Blood Pressure O2 Sat by Pulse 98 96 77 L Oximetry 04/19/20 04/19/20 04/19/20 21:15 21:18 21:19 Pulse Rate 98 H 100 H Respiratory 16 Rate Blood Pressure O2 Sat by Pulse 99 85 Oximetry 04/19/20 04/19/20 04/19/20 21:20 21:24 21:25 Pulse Rate 76 104 H 58 L Respiratory Rate Blood Pressure O2 Sat by Pulse 87 92 87 Oximetry 04/19/20 04/19/20 04/19/20 21:30 21:35 21:39 Pulse Rate 98 H 88 94 H Respiratory Rate Blood Pressure 144/84 O2 Sat by Pulse 93 95 86 Oximetry 04/19/20 04/19/20 04/19/20 21:40 21:45 21:46 Pulse Rate 88 94 H 92 H Respiratory Rate Blood Pressure O2 Sat by Pulse 94 97 86 Oximetry 04/19/20 04/19/20 04/19/20 21:50 21:54 21:55 Pulse Rate 96 H 53 L 84 Respiratory Rate Blood Pressure O2 Sat by Pulse 96 85 96 Oximetry 04/19/20 04/19/20 04/19/20 22:00 22:05 22:10 Pulse Rate 93 H 93 H 102 H Respiratory Rate Blood Pressure O2 Sat by Pulse 97 96 97 Oximetry 04/19/20 04/19/20 04/19/20 22:13 22:15 22:19 Pulse Rate 114 H 95 H Respiratory 16 Rate Blood Pressure O2 Sat by Pulse 91 99 Oximetry 04/19/20 04/19/20 04/19/20 22:20 22:25 22:27 Pulse Rate 101 H 110 H Respiratory Rate Blood Pressure O2 Sat by Pulse 86 92 91 Oximetry 04/19/20 04/19/20 04/19/20 22:31 22:32 22:33 Pulse Rate 115 H 111 H 112 H Respiratory Rate Blood Pressure 198/96 O2 Sat by Pulse 98 92 Oximetry 04/19/20 04/19/20 04/19/20 22:37 22:38 22:42 Pulse Rate 120 H 113 H 105 H Respiratory Rate Blood Pressure O2 Sat by Pulse 99 94 89 Oximetry 04/19/20 04/19/20 04/19/20 22:46 22:47 22:52 Pulse Rate 119 H 110 H 121 H Respiratory Rate Blood Pressure O2 Sat by Pulse 94 94 98 Oximetry 04/19/20 04/19/20 04/19/20 22:57 23:02 23:07 Pulse Rate 133 H 127 H 121 H Respiratory Rate Blood Pressure O2 Sat by Pulse 93 100 98 Oximetry 04/19/20 04/19/20 04/19/20 23:12 23:17 23:22 Pulse Rate 109 H 101 H 119 H Respiratory Rate Blood Pressure O2 Sat by Pulse 87 99 82 L Oximetry 04/19/20 04/19/20 04/19/20 23:24 23:27 23:30 Pulse Rate 102 H 108 H Respiratory Rate Blood Pressure 135/86 O2 Sat by Pulse 91 86 Oximetry 04/19/20 04/19/20 04/19/20 23:31 23:32 23:37 Pulse Rate 107 H 90 99 H Respiratory Rate Blood Pressure 123/56 O2 Sat by Pulse 93 93 Oximetry 04/19/20 04/19/20 04/19/20 23:42 23:47 23:48 Pulse Rate 105 H 105 H Respiratory Rate Blood Pressure O2 Sat by Pulse 80 L 89 86 Oximetry 04/19/20 04/19/20 04/19/20 23:53 23:58 23:59 Pulse Rate 102 H 109 H 109 H Respiratory Rate Blood Pressure O2 Sat by Pulse 92 97 84 Oximetry 04/20/20 04/20/20 04/20/20 00:03 00:05 00:09 Pulse Rate 68 104 H 107 H Respiratory Rate Blood Pressure O2 Sat by Pulse 88 91 95 Oximetry 04/20/20 04/20/20 04/20/20 00:10 00:14 00:16 Pulse Rate 99 H 91 H Respiratory Rate Blood Pressure O2 Sat by Pulse 81 L 92 91 Oximetry 04/20/20 04/20/20 04/20/20 00:19 00:24 00:27 Pulse Rate 101 H 99 H 95 H Respiratory Rate Blood Pressure O2 Sat by Pulse 80 L 79 L 92 Oximetry 04/20/20 04/20/20 04/20/20 00:29 00:31 00:33 Pulse Rate 104 H 94 H Respiratory Rate Blood Pressure 128/74 O2 Sat by Pulse 87 73 L Oximetry 04/20/20 04/20/20 04/20/20 00:34 00:51 00:52 Pulse Rate 89 96 H Respiratory Rate Blood Pressure O2 Sat by Pulse 91 85 93 Oximetry 04/20/20 04/20/20 04/20/20 00:57 00:59 01:02 Pulse Rate 107 H 100 H 94 H Respiratory Rate Blood Pressure O2 Sat by Pulse 95 94 95 Oximetry 04/20/20 04/20/20 04/20/20 01:04 01:07 01:12 Pulse Rate 94 H 100 H 96 H Respiratory Rate Blood Pressure O2 Sat by Pulse 89 96 94 Oximetry 04/20/20 04/20/20 04/20/20 01:17 01:22 01:25 Pulse Rate 95 H 94 H Respiratory Rate Blood Pressure O2 Sat by Pulse 94 93 79 L Oximetry 04/20/20 04/20/20 04/20/20 01:27 01:31 01:32 Pulse Rate 87 83 88 Respiratory Rate Blood Pressure 128/71 O2 Sat by Pulse 95 95 Oximetry 04/20/20 04/20/20 04/20/20 01:33 01:37 01:38 Pulse Rate 89 Respiratory Rate Blood Pressure O2 Sat by Pulse 84 80 L 60 L Oximetry 04/20/20 04/20/20 04/20/20 01:44 01:49 01:54 Pulse Rate 77 86 83 Respiratory Rate Blood Pressure O2 Sat by Pulse 93 96 95 Oximetry 04/20/20 04/20/20 04/20/20 01:59 02:04 02:09 Pulse Rate 76 79 84 Respiratory Rate Blood Pressure O2 Sat by Pulse 94 97 95 Oximetry 04/20/20 04/20/20 04/20/20 02:13 02:14 02:19 Pulse Rate 83 86 72 Respiratory Rate Blood Pressure O2 Sat by Pulse 93 94 97 Oximetry 04/20/20 04/20/20 04/20/20 02:24 02:29 02:30 Pulse Rate 80 69 77 Respiratory Rate Blood Pressure 131/68 O2 Sat by Pulse 96 96 90 Oximetry 04/20/20 04/20/20 04/20/20 02:34 02:39 02:44 Pulse Rate 75 88 78 Respiratory Rate Blood Pressure O2 Sat by Pulse 96 100 100 Oximetry 04/20/20 04/20/20 04/20/20 02:49 02:54 02:55 Pulse Rate 77 69 39 L Respiratory Rate Blood Pressure O2 Sat by Pulse 100 100 82 L Oximetry 04/20/20 04/20/20 04/20/20 02:59 03:00 03:04 Pulse Rate 77 97 H 88 Respiratory 18 Rate Blood Pressure O2 Sat by Pulse 100 84 91 Oximetry 04/20/20 04/20/20 04/20/20 03:09 03:14 03:16 Pulse Rate 84 83 Respiratory Rate Blood Pressure O2 Sat by Pulse 90 89 85 Oximetry 04/20/20 04/20/20 04/20/20 03:19 03:22 03:24 Pulse Rate 85 85 85 Respiratory Rate Blood Pressure O2 Sat by Pulse 93 94 95 Oximetry 04/20/20 04/20/20 04/20/20 03:27 03:29 03:30 Pulse Rate 84 84 Respiratory Rate Blood Pressure 133/70 O2 Sat by Pulse 68 L 92 Oximetry 04/20/20 04/20/20 04/20/20 03:32 03:34 03:39 Pulse Rate 89 92 H 83 Respiratory Rate Blood Pressure O2 Sat by Pulse 70 L 100 100 Oximetry 04/20/20 04/20/20 04/20/20 03:44 03:49 03:54 Pulse Rate 86 86 90 Respiratory Rate Blood Pressure O2 Sat by Pulse 100 99 96 Oximetry 04/20/20 04/20/20 04/20/20 03:55 03:59 04:01 Pulse Rate 76 79 87 Respiratory Rate Blood Pressure O2 Sat by Pulse 82 L 95 93 Oximetry 04/20/20 04/20/20 04/20/20 04:04 04:06 04:09 Pulse Rate 89 101 H 82 Respiratory Rate Blood Pressure O2 Sat by Pulse 95 0 L 97 Oximetry 04/20/20 04/20/20 04/20/20 04:14 04:19 04:24 Pulse Rate 87 82 77 Respiratory Rate Blood Pressure O2 Sat by Pulse 96 97 97 Oximetry 04/20/20 04/20/20 04/20/20 04:29 04:30 04:31 Pulse Rate 83 144 H 75 Respiratory Rate Blood Pressure 137/78 O2 Sat by Pulse 76 L 86 Oximetry 04/20/20 04/20/20 04/20/20 04:35 04:40 04:45 Pulse Rate 35 L 82 79 Respiratory Rate Blood Pressure O2 Sat by Pulse 95 94 95 Oximetry 04/20/20 04/20/20 04/20/20 04:46 04:50 04:52 Pulse Rate 76 77 80 Respiratory Rate Blood Pressure O2 Sat by Pulse 94 94 94 Oximetry 04/20/20 04/20/20 04/20/20 04:55 05:03 05:06 Pulse Rate 75 134 H Respiratory Rate Blood Pressure O2 Sat by Pulse 95 97 83 L Oximetry 04/20/20 04/20/20 04/20/20 05:08 05:12 05:13 Pulse Rate 80 57 L Respiratory Rate Blood Pressure O2 Sat by Pulse 97 41 L 94 Oximetry 04/20/20 04/20/20 04/20/20 05:17 05:21 05:22 Pulse Rate 72 78 82 Respiratory Rate Blood Pressure O2 Sat by Pulse 92 100 74 L Oximetry 04/20/20 04/20/20 04/20/20 05:27 05:30 05:33 Pulse Rate 81 76 76 Respiratory Rate Blood Pressure 137/84 O2 Sat by Pulse 72 L 90 Oximetry 04/20/20 04/20/20 04/20/20 05:38 05:40 05:43 Pulse Rate 55 L 57 L Respiratory 16 Rate Blood Pressure O2 Sat by Pulse 81 L 87 84 Oximetry 04/20/20 04/20/20 04/20/20 05:51 05:56 06:01 Pulse Rate 81 82 75 Respiratory Rate Blood Pressure O2 Sat by Pulse 92 90 89 Oximetry 04/20/20 04/20/20 04/20/20 06:06 06:11 06:16 Pulse Rate 81 74 74 Respiratory Rate Blood Pressure O2 Sat by Pulse 88 90 86 Oximetry 04/20/20 04/20/20 04/20/20 06:20 06:21 06:26 Pulse Rate 67 72 Respiratory Rate Blood Pressure O2 Sat by Pulse 90 100 86 Oximetry 04/20/20 04/20/20 04/20/20 06:31 06:36 06:41 Pulse Rate 71 70 73 Respiratory Rate Blood Pressure 134/80 O2 Sat by Pulse 85 80 L 85 Oximetry 04/20/20 04/20/20 04/20/20 06:46 06:51 06:57 Pulse Rate 69 74 67 Respiratory Rate Blood Pressure O2 Sat by Pulse 68 L 89 87 Oximetry 04/20/20 04/20/20 04/20/20 07:01 07:02 07:06 Pulse Rate 66 56 L 70 Respiratory Rate Blood Pressure O2 Sat by Pulse 84 82 L 84 Oximetry 04/20/20 04/20/20 04/20/20 07:07 07:11 07:12 Pulse Rate 63 Respiratory Rate Blood Pressure O2 Sat by Pulse 84 91 81 L Oximetry 04/20/20 04/20/20 04/20/20 07:20 07:23 07:25 Pulse Rate Respiratory Rate Blood Pressure O2 Sat by Pulse 82 L 92 90 Oximetry 04/20/20 04/20/20 04/20/20 07:31 07:34 07:39 Pulse Rate 76 Respiratory Rate Blood Pressure 135/82 O2 Sat by Pulse 77 L 86 89 Oximetry 04/20/20 04/20/20 04/20/20 07:40 07:44 07:45 Pulse Rate 68 37 L Respiratory Rate Blood Pressure O2 Sat by Pulse 99 93 75 L Oximetry 04/20/20 04/20/20 04/20/20 07:49 07:50 07:55 Pulse Rate 61 74 72 Respiratory Rate Blood Pressure O2 Sat by Pulse 0 L 99 88 Oximetry 04/20/20 08:00 Pulse Rate 78 Respiratory Rate Blood Pressure O2 Sat by Pulse 48 L Oximetry - Exam Lungs: Normal air movement Abdomen: Present: soft. Absent: distention FHR: category 1 Uterine Contraction Monitor Mode: External Cervical Dilatation: 0 (Per RN) Uterine Contraction Frequency (min): 5 Uterine Contraction Pattern: Regular Uterine Tone Measurement Phase: Contraction Uterine Contraction Intensity: Mild - Labs Labs: Abnormal Labs 04/19/20 04/19/20 12:30 20:05 MCH 26 L RDW 26.7 H Sodium 135 L BUN 6 L Creatinine 0.5 L Albumin 3.0 L Laboratory Results - last 24 hr 04/19/20 04/19/20 04/19/20 10:44 12:13 12:30 WBC 8.2 RBC 4.10 Hgb 10.7 Hct 33.3 MCV 81 MCH 26 L MCHC 32 RDW 26.7 H Plt Count 154 Sodium Potassium Chloride Carbon Dioxide Anion Gap BUN Creatinine Estimated GFR BUN/Creatinine Ratio Glucose POC Glucose 103 Uric Acid Calcium Total Bilirubin AST ALT Alkaline Phosphatase Total Protein Albumin Albumin/Globulin Ratio Blood Type A NEGATIVE Antibody Screen Positive Antibody Identification Anti-D (Passively Aquired) 04/19/20 04/19/20 04/20/20 18:52 20:05 07:04 WBC RBC Hgb Hct MCV MCH MCHC RDW Plt Count Sodium 135 L Potassium 3.8 Chloride 99.9 Carbon Dioxide 22 Anion Gap 17 BUN 6 L Creatinine 0.5 L Estimated GFR > 60 BUN/Creatinine Ratio 12 Glucose 94 POC Glucose 78 80 Uric Acid 4.6 Calcium 9.0 Total Bilirubin 0.30 AST 14 ALT 8 Alkaline Phosphatase 129 Total Protein 6.4 Albumin 3.0 L Albumin/Globulin Ratio 0.9 Blood Type Antibody Screen Antibody Identification
--- NOTE | 2020-04-20 08:12 | Progress Note ---
Assessment and Plan A: IUP at 39w6d Morbid Obesity Gestational Diabetes Diverting Colostomy P: Continue intrapartum care Subjective - Subjective Date of service: 04/20/20 Principal diagnosis: IOL for GDM, obesity Interval history: Pt uncomfortable with contractions. Patient reports: movement normal, contractions, no new complaints, no loss of fluid Objective - Vital Signs Vital Signs: Vital Signs - 12hr 04/19/20 04/19/20 04/19/20 20:11 20:12 20:16 Temperature Pulse Rate 113 H 108 H 97 H Respiratory Rate Blood Pressure O2 Sat by Pulse 95 86 87 Oximetry 04/19/20 04/19/20 04/19/20 20:21 20:23 20:26 Temperature Pulse Rate 101 H 98 H Respiratory Rate Blood Pressure O2 Sat by Pulse 90 72 L 90 Oximetry 04/19/20 04/19/20 04/19/20 20:30 20:32 20:35 Temperature Pulse Rate 93 H 96 H Respiratory Rate Blood Pressure 144/79 O2 Sat by Pulse 80 L 90 83 L Oximetry 04/19/20 04/19/20 04/19/20 20:37 20:42 20:46 Temperature Pulse Rate 97 H 92 H Respiratory Rate Blood Pressure O2 Sat by Pulse 94 93 90 Oximetry 04/19/20 04/19/20 04/19/20 20:47 20:52 20:59 Temperature Pulse Rate 97 H 167 H 34 L Respiratory Rate Blood Pressure O2 Sat by Pulse 82 L 84 81 L Oximetry 04/19/20 04/19/20 04/19/20 21:04 21:09 21:10 Temperature Pulse Rate 98 H 101 H Respiratory Rate Blood Pressure O2 Sat by Pulse 98 96 77 L Oximetry 04/19/20 04/19/20 04/19/20 21:15 21:18 21:19 Temperature Pulse Rate 98 H 100 H Respiratory 16 Rate Blood Pressure O2 Sat by Pulse 99 85 Oximetry 04/19/20 04/19/20 04/19/20 21:20 21:24 21:25 Temperature Pulse Rate 76 104 H 58 L Respiratory Rate Blood Pressure O2 Sat by Pulse 87 92 87 Oximetry 04/19/20 04/19/20 04/19/20 21:30 21:35 21:39 Temperature Pulse Rate 98 H 88 94 H Respiratory Rate Blood Pressure 144/84 O2 Sat by Pulse 93 95 86 Oximetry 04/19/20 04/19/20 04/19/20 21:40 21:45 21:46 Temperature Pulse Rate 88 94 H 92 H Respiratory Rate Blood Pressure O2 Sat by Pulse 94 97 86 Oximetry 04/19/20 04/19/20 04/19/20 21:50 21:54 21:55 Temperature Pulse Rate 96 H 53 L 84 Respiratory Rate Blood Pressure O2 Sat by Pulse 96 85 96 Oximetry 04/19/20 04/19/20 04/19/20 22:00 22:05 22:10 Temperature Pulse Rate 93 H 93 H 102 H Respiratory Rate Blood Pressure O2 Sat by Pulse 97 96 97 Oximetry 04/19/20 04/19/20 04/19/20 22:13 22:15 22:19 Temperature Pulse Rate 114 H 95 H Respiratory 16 Rate Blood Pressure O2 Sat by Pulse 91 99 Oximetry 04/19/20 04/19/20 04/19/20 22:20 22:25 22:27 Temperature Pulse Rate 101 H 110 H Respiratory Rate Blood Pressure O2 Sat by Pulse 86 92 91 Oximetry 04/19/20 04/19/20 04/19/20 22:31 22:32 22:33 Temperature Pulse Rate 115 H 111 H 112 H Respiratory Rate Blood Pressure 198/96 O2 Sat by Pulse 98 92 Oximetry 04/19/20 04/19/20 04/19/20 22:37 22:38 22:42 Temperature Pulse Rate 120 H 113 H 105 H Respiratory Rate Blood Pressure O2 Sat by Pulse 99 94 89 Oximetry 04/19/20 04/19/20 04/19/20 22:46 22:47 22:52 Temperature Pulse Rate 119 H 110 H 121 H Respiratory Rate Blood Pressure O2 Sat by Pulse 94 94 98 Oximetry 04/19/20 04/19/20 04/19/20 22:57 23:02 23:07 Temperature Pulse Rate 133 H 127 H 121 H Respiratory Rate Blood Pressure O2 Sat by Pulse 93 100 98 Oximetry 04/19/20 04/19/20 04/19/20 23:12 23:17 23:22 Temperature Pulse Rate 109 H 101 H 119 H Respiratory Rate Blood Pressure O2 Sat by Pulse 87 99 82 L Oximetry 04/19/20 04/19/20 04/19/20 23:24 23:27 23:30 Temperature Pulse Rate 102 H 108 H Respiratory Rate Blood Pressure 135/86 O2 Sat by Pulse 91 86 Oximetry 04/19/20 04/19/20 04/19/20 23:31 23:32 23:37 Temperature Pulse Rate 107 H 90 99 H Respiratory Rate Blood Pressure 123/56 O2 Sat by Pulse 93 93 Oximetry 04/19/20 04/19/20 04/19/20 23:42 23:47 23:48 Temperature Pulse Rate 105 H 105 H Respiratory Rate Blood Pressure O2 Sat by Pulse 80 L 89 86 Oximetry 04/19/20 04/19/20 04/19/20 23:53 23:58 23:59 Temperature Pulse Rate 102 H 109 H 109 H Respiratory Rate Blood Pressure O2 Sat by Pulse 92 97 84 Oximetry 04/20/20 04/20/20 04/20/20 00:03 00:05 00:09 Temperature Pulse Rate 68 104 H 107 H Respiratory Rate Blood Pressure O2 Sat by Pulse 88 91 95 Oximetry 04/20/20 04/20/20 04/20/20 00:10 00:14 00:16 Temperature Pulse Rate 99 H 91 H Respiratory Rate Blood Pressure O2 Sat by Pulse 81 L 92 91 Oximetry 04/20/20 04/20/20 04/20/20 00:19 00:24 00:27 Temperature Pulse Rate 101 H 99 H 95 H Respiratory Rate Blood Pressure O2 Sat by Pulse 80 L 79 L 92 Oximetry 04/20/20 04/20/20 04/20/20 00:29 00:31 00:33 Temperature Pulse Rate 104 H 94 H Respiratory Rate Blood Pressure 128/74 O2 Sat by Pulse 87 73 L Oximetry 04/20/20 04/20/20 04/20/20 00:34 00:51 00:52 Temperature Pulse Rate 89 96 H Respiratory Rate Blood Pressure O2 Sat by Pulse 91 85 93 Oximetry 04/20/20 04/20/20 04/20/20 00:57 00:59 01:02 Temperature Pulse Rate 107 H 100 H 94 H Respiratory Rate Blood Pressure O2 Sat by Pulse 95 94 95 Oximetry 04/20/20 04/20/20 04/20/20 01:04 01:07 01:12 Temperature Pulse Rate 94 H 100 H 96 H Respiratory Rate Blood Pressure O2 Sat by Pulse 89 96 94 Oximetry 04/20/20 04/20/20 04/20/20 01:17 01:22 01:25 Temperature Pulse Rate 95 H 94 H Respiratory Rate Blood Pressure O2 Sat by Pulse 94 93 79 L Oximetry 04/20/20 04/20/20 04/20/20 01:27 01:31 01:32 Temperature Pulse Rate 87 83 88 Respiratory Rate Blood Pressure 128/71 O2 Sat by Pulse 95 95 Oximetry 04/20/20 04/20/20 04/20/20 01:33 01:37 01:38 Temperature Pulse Rate 89 Respiratory Rate Blood Pressure O2 Sat by Pulse 84 80 L 60 L Oximetry 04/20/20 04/20/20 04/20/20 01:44 01:49 01:54 Temperature Pulse Rate 77 86 83 Respiratory Rate Blood Pressure O2 Sat by Pulse 93 96 95 Oximetry 04/20/20 04/20/20 04/20/20 01:59 02:04 02:09 Temperature Pulse Rate 76 79 84 Respiratory Rate Blood Pressure O2 Sat by Pulse 94 97 95 Oximetry 04/20/20 04/20/20 04/20/20 02:13 02:14 02:19 Temperature Pulse Rate 83 86 72 Respiratory Rate Blood Pressure O2 Sat by Pulse 93 94 97 Oximetry 04/20/20 04/20/20 04/20/20 02:24 02:29 02:30 Temperature Pulse Rate 80 69 77 Respiratory Rate Blood Pressure 131/68 O2 Sat by Pulse 96 96 90 Oximetry 04/20/20 04/20/20 04/20/20 02:34 02:39 02:44 Temperature Pulse Rate 75 88 78 Respiratory Rate Blood Pressure O2 Sat by Pulse 96 100 100 Oximetry 04/20/20 04/20/20 04/20/20 02:49 02:54 02:55 Temperature Pulse Rate 77 69 39 L Respiratory Rate Blood Pressure O2 Sat by Pulse 100 100 82 L Oximetry 04/20/20 04/20/20 04/20/20 02:59 03:00 03:04 Temperature Pulse Rate 77 97 H 88 Respiratory 18 Rate Blood Pressure O2 Sat by Pulse 100 84 91 Oximetry 04/20/20 04/20/20 04/20/20 03:09 03:14 03:16 Temperature Pulse Rate 84 83 Respiratory Rate Blood Pressure O2 Sat by Pulse 90 89 85 Oximetry 04/20/20 04/20/20 04/20/20 03:19 03:22 03:24 Temperature Pulse Rate 85 85 85 Respiratory Rate Blood Pressure O2 Sat by Pulse 93 94 95 Oximetry 04/20/20 04/20/20 04/20/20 03:27 03:29 03:30 Temperature Pulse Rate 84 84 Respiratory Rate Blood Pressure 133/70 O2 Sat by Pulse 68 L 92 Oximetry 04/20/20 04/20/20 04/20/20 03:32 03:34 03:39 Temperature Pulse Rate 89 92 H 83 Respiratory Rate Blood Pressure O2 Sat by Pulse 70 L 100 100 Oximetry 04/20/20 04/20/20 04/20/20 03:44 03:49 03:54 Temperature Pulse Rate 86 86 90 Respiratory Rate Blood Pressure O2 Sat by Pulse 100 99 96 Oximetry 04/20/20 04/20/20 04/20/20 03:55 03:59 04:01 Temperature Pulse Rate 76 79 87 Respiratory Rate Blood Pressure O2 Sat by Pulse 82 L 95 93 Oximetry 04/20/20 04/20/20 04/20/20 04:04 04:06 04:09 Temperature Pulse Rate 89 101 H 82 Respiratory Rate Blood Pressure O2 Sat by Pulse 95 0 L 97 Oximetry 04/20/20 04/20/20 04/20/20 04:14 04:19 04:24 Temperature Pulse Rate 87 82 77 Respiratory Rate Blood Pressure O2 Sat by Pulse 96 97 97 Oximetry 04/20/20 04/20/20 04/20/20 04:29 04:30 04:31 Temperature Pulse Rate 83 144 H 75 Respiratory Rate Blood Pressure 137/78 O2 Sat by Pulse 76 L 86 Oximetry 04/20/20 04/20/20 04/20/20 04:35 04:40 04:45 Temperature Pulse Rate 35 L 82 79 Respiratory Rate Blood Pressure O2 Sat by Pulse 95 94 95 Oximetry 04/20/20 04/20/20 04/20/20 04:46 04:50 04:52 Temperature Pulse Rate 76 77 80 Respiratory Rate Blood Pressure O2 Sat by Pulse 94 94 94 Oximetry 04/20/20 04/20/20 04/20/20 04:55 05:03 05:06 Temperature Pulse Rate 75 134 H Respiratory Rate Blood Pressure O2 Sat by Pulse 95 97 83 L Oximetry 04/20/20 04/20/20 04/20/20 05:08 05:12 05:13 Temperature Pulse Rate 80 57 L Respiratory Rate Blood Pressure O2 Sat by Pulse 97 41 L 94 Oximetry 04/20/20 04/20/20 04/20/20 05:17 05:21 05:22 Temperature Pulse Rate 72 78 82 Respiratory Rate Blood Pressure O2 Sat by Pulse 92 100 74 L Oximetry 04/20/20 04/20/20 04/20/20 05:27 05:30 05:33 Temperature Pulse Rate 81 76 76 Respiratory Rate Blood Pressure 137/84 O2 Sat by Pulse 72 L 90 Oximetry 04/20/20 04/20/20 04/20/20 05:38 05:40 05:43 Temperature Pulse Rate 55 L 57 L Respiratory 16 Rate Blood Pressure O2 Sat by Pulse 81 L 87 84 Oximetry 04/20/20 04/20/20 04/20/20 05:51 05:56 06:01 Temperature Pulse Rate 81 82 75 Respiratory Rate Blood Pressure O2 Sat by Pulse 92 90 89 Oximetry 04/20/20 04/20/20 04/20/20 06:06 06:11 06:16 Temperature Pulse Rate 81 74 74 Respiratory Rate Blood Pressure O2 Sat by Pulse 88 90 86 Oximetry 04/20/20 04/20/20 04/20/20 06:20 06:21 06:26 Temperature Pulse Rate 67 72 Respiratory Rate Blood Pressure O2 Sat by Pulse 90 100 86 Oximetry 04/20/20 04/20/20 04/20/20 06:31 06:36 06:41 Temperature Pulse Rate 71 70 73 Respiratory Rate Blood Pressure 134/80 O2 Sat by Pulse 85 80 L 85 Oximetry 04/20/20 04/20/20 04/20/20 06:46 06:51 06:57 Temperature Pulse Rate 69 74 67 Respiratory Rate Blood Pressure O2 Sat by Pulse 68 L 89 87 Oximetry 04/20/20 04/20/20 04/20/20 07:01 07:02 07:06 Temperature Pulse Rate 66 56 L 70 Respiratory Rate Blood Pressure O2 Sat by Pulse 84 82 L 84 Oximetry 04/20/20 04/20/20 04/20/20 07:07 07:11 07:12 Temperature Pulse Rate 63 Respiratory Rate Blood Pressure O2 Sat by Pulse 84 91 81 L Oximetry 04/20/20 04/20/20 04/20/20 07:20 07:23 07:25 Temperature Pulse Rate Respiratory Rate Blood Pressure O2 Sat by Pulse 82 L 92 90 Oximetry 04/20/20 04/20/20 04/20/20 07:31 07:34 07:39 Temperature Pulse Rate 76 Respiratory Rate Blood Pressure 135/82 O2 Sat by Pulse 77 L 86 89 Oximetry 04/20/20 04/20/20 04/20/20 07:40 07:44 07:45 Temperature Pulse Rate 68 37 L Respiratory Rate Blood Pressure O2 Sat by Pulse 99 93 75 L Oximetry 04/20/20 04/20/20 04/20/20 07:49 07:50 07:55 Temperature Pulse Rate 61 74 72 Respiratory Rate Blood Pressure O2 Sat by Pulse 0 L 99 88 Oximetry 04/20/20 04/20/20 08:00 08:07 Temperature 97.8 F Pulse Rate 78 Respiratory Rate Blood Pressure O2 Sat by Pulse 48 L Oximetry - Exam Breasts: deferred Abdomen: Present: soft (gravid ) Uterus: Present: other (obese, gravid ) FHR: auscultation normal Uterine Contraction Monitor Mode: External Cervical Dilatation: 1 Cervical Effacement Percentage: 50 station: -4 Uterine Contraction Pattern: Irregular Uterine Tone Measurement Phase: Resting Uterine Contraction Intensity: Moderate - Labs Labs: Abnormal Labs 04/19/20 04/19/20 12:30 20:05 MCH 26 L RDW 26.7 H Sodium 135 L BUN 6 L Creatinine 0.5 L Albumin 3.0 L Laboratory Results - last 24 hr 04/19/20 04/19/20 04/19/20 10:44 12:13 12:30 WBC 8.2 RBC 4.10 Hgb 10.7 Hct 33.3 MCV 81 MCH 26 L MCHC 32 RDW 26.7 H Plt Count 154 Sodium Potassium Chloride Carbon Dioxide Anion Gap BUN Creatinine Estimated GFR BUN/Creatinine Ratio Glucose POC Glucose 103 Uric Acid Calcium Total Bilirubin AST ALT Alkaline Phosphatase Total Protein Albumin Albumin/Globulin Ratio Blood Type A NEGATIVE Antibody Screen Positive Antibody Identification Anti-D (Passively Aquired) 04/19/20 04/19/20 04/20/20 18:52 20:05 07:04 WBC RBC Hgb Hct MCV MCH MCHC RDW Plt Count Sodium 135 L Potassium 3.8 Chloride 99.9 Carbon Dioxide 22 Anion Gap 17 BUN 6 L Creatinine 0.5 L Estimated GFR > 60 BUN/Creatinine Ratio 12 Glucose 94 POC Glucose 78 80 Uric Acid 4.6 Calcium 9.0 Total Bilirubin 0.30 AST 14 ALT 8 Alkaline Phosphatase 129 Total Protein 6.4 Albumin 3.0 L Albumin/Globulin Ratio 0.9 Blood Type Antibody Screen Antibody Identification
--- NOTE | 2020-04-20 13:13 | Event Note ---
Date: 04/20/20 Pt is experiencing painful contractions, moderate to palpation. Cervix remains /-4. Discussed r/b/a of Cook catheter placement including rupture of membranes and bleeding. Pt elects for placement. Cook catheter placed in sterile fashion, each balloon inflated with 60cc of saline. Pt tolerated well, FHT category 1 throughout. Continue low dose Pitocin.
--- NOTE | 2020-04-20 17:08 | Event Note ---
Date: 04/20/20 Pt reports increasing pain with contractions q3 minutes. Cook catheter removed with gentle traction. FHT category 1. SVE 6/50/-3. Initiate fluid bolus for epidural, plan for AROM and Pitocin titration. Anticipate .
[2020-04-20] MEDS ORDERED: DEXMEDETOMIDINE 200 MCG/2 ML VIAL IV ONE (18:09)
[2020-04-20] MEDS ORDERED: fentaNYL-BUPIV 2 MCG/ML-0.125% 200 MCG/100 ML BAG EPIDURAL ONE (18:10)
[2020-04-20] MEDS ORDERED: NALOXONE 2 MG/2 ML INJ IV PRN (18:27)
[2020-04-20] MEDS ORDERED: ePHEDrine SULFATE 50 MG/1 ML INJ IV PRN (18:27)
--- NOTE | 2020-04-20 18:27 | Anesthesia Consultation ---
Anesthesia Consult and Med Hx Date of service: 04/20/20 - Airway Anesthetic Teeth Evaluation: Good ROM Head & Neck: Adequate Mental/Hyoid Distance: Adequate Mallampati Class: Class II Intubation Access Assessment: Probably Good - Pulmonary Exam CTA: Yes - Cardiac Exam Cardiac Exam: RRR - Pre-Operative Health Status ASA Pre-Surgery Classification: ASA3 Proposed Anesthetic Plan: Epidural - Pulmonary Hx Asthma: Yes Hx Respiratory Symptoms: No COPD: No Hx Pneumonia: No - Cardiovascular System Hx Hypertension: No Hx Cardia Arrhythmia: No - Central Nervous System Hx Neuromuscular Disorder: No Hx Seizures: No Hx Back Pain: No Hx Psychiatric Problems: No - Gastrointestinal Hx Ulcer: No Hx Gastroesophageal Reflux Disease: No - Endocrine Hx Renal Disease: No Hx End Stage Renal Disease: No Hx Liver Disease: No Hx Insulin Dependent Diabetes: No Hx Non-Insulin Dependent Diabetes: No Hx Thyroid Disease: No Hx Hypothyroidism: No Hx Hyperthyroidism: No - Hematic Hx Anemia: Yes Hx Sickle Cell Disease: No - Other Systems Hx Alcohol Use: No Hx Substance Use: No Hx Cancer: No Hx Obesity: Yes
[2020-04-20] MEDS ORDERED: fentaNYL-BUPIV 2 MCG/ML-0.125% 200 MCG/100 ML BAG EPIDURAL SCH (19:00)
--- NOTE | 2020-04-20 19:34 | Progress Note ---
Labor Epidural - Labor Epidural Start Time: 18:13 Stop Time: 18:16 Performed by:: THOR JEFFRIES Procedure: Patient is requesting epidural for labor pain. H&P, and labs reviewed. Procedure explained, questions answered, consent obtained. Patient in sitting position with blood pressure cuff and pulse ox on and working. Timeout performed immediately before start of procedure. Sterile betadine prep/drape. 3 mL 1% lidocaine skin wheal at L[3]-L[4]. 18-gauge Touhy epidural needle advanced to [id number] with saline at 9 cm. 27-gauge spinal needle advanced until clear, free-flowing CSF. Intrathecal dexmedetomidine [10] mcg administered and needle removed. Epidural catheter advanced to 14 cm, negative aspiration for blood and csf, negative test dose 3 ml 1.5% lidocaine with epinephrine. Sterile steri-strips and tegaderm applied, followed by tape reinforcement. Patient tolerated procedure well. While positioning the patient supine, epidural catheter accidentally d/c with tip intact. [id number] Patient in sitting position with blood pressure cuff and pulse ox on and working. Timeout performed immediately before start of procedure. Sterile betadine prep/drape. 3 mL 1% lidocaine skin wheal at L2-L3. 18-gauge Touhy epi dural needle advanced to [id number] with saline at 8 cm. Epidural catheter advanced to 14 cm, negative aspiration for blood and csf, negative test dose 3 ml 1.5% lidocaine with epinephrine. Sterile steri-strips and tegaderm applied, followed by tape reinforcement. Patient tolerated procedure well.
--- NOTE | 2020-04-20 20:54 | Event Note ---
Date: 04/20/20 Pt is comfortable with epidural in place. Blood clot the size of a golf ball noted at perineum. No active bleeding. SVE /-2 (significantly thinned since last SVE), incidental rupture of membranes, copious clear fluid. scalp electrode placed. Variable decelerations noted with quick return to baseline. [place] picking up uterine activity well. No further bleeding noted. Will continue to monitor closely.
[2020-04-20] MEDS: LACTATED RINGERS 1,000 ML IV SCH (21:16)
--- NOTE | 2020-04-20 21:59 | Event Note ---
Date: 04/20/20 Deep variable decelerations noted with quick return to baseline. Moderate variability. IUPC placed, amnioinfusion initiated. Recovering with position to left lateral and maternal O2. Maritza Dumont MD aware of patient.
[2020-04-20] MEDS ORDERED: SODIUM CHLORIDE 0.9% 1000 ML 1,000 ML VG SCH (22:00)
--- NOTE | 2020-04-21 00:18 | Event Note ---
Date: 04/21/20 Pt with repetitive deep variable decelerations to the 60s and no cervical change. The decision is made to proceed with section.
[2020-04-21] MEDS ORDERED: SODIUM CHLORIDE 0.9% 500 ML 500 ML IV ONE (00:19)
[2020-04-21] MEDS ORDERED: METOCLOPRAMIDE 10 MG/2 ML INJ IV ONE (00:20)
[2020-04-21] MEDS ORDERED: BICITRA ORAL LIQD 30ML PO ONE (00:20)
[2020-04-21] MEDS ORDERED: FAMOTIDINE 20 MG/2 ML INJ IV ONE (00:20)
[2020-04-21] MEDS ORDERED: LACTATED RINGERS 1,000 ML IV SCH ×2 (01:00→04:00)
[2020-04-21] MEDS ORDERED: SODIUM CHLORIDE 0.9% IRR 1,500 ML BOTTLE IR ONE (01:07)
[2020-04-21] MEDS ORDERED: WATER FOR IRRIG STERILE 1,500 ML BOTTLE IR ONE (01:07)
[2020-04-21] MEDS ORDERED: BUPIVACAINE/PF (0.5%) 5 MG/1 ML 30 ML VIAL INFILTRATI ONE (01:24)
[2020-04-21] MEDS ORDERED: DEXMEDETOMIDINE 200 MCG/2 ML VIAL IV ONE (01:24)
[2020-04-21] MEDS ORDERED: BUPIVACAINE /DEX-WATER 0.75% (2 ML) AMPULE INFILTRATI ONE (01:24)
[2020-04-21] MEDS ORDERED: KETOROLAC 30 MG/1 ML INJ ONE ×2 (01:30→12:11)
[2020-04-21] MEDS ORDERED: PHENYLEPHRINE/NS 1,000 MCG/10 ML SYRINGE (OR USE) IV ONE (01:33)
[2020-04-21] MEDS: OXYTOCIN 20 UNIT/1000ML DRIP 20 UNITS/1,000 ML BAG IV SCH ×2 (01:56→03:28)
[2020-04-21] MEDS ORDERED: OXYTOCIN 10 UNIT/1 ML INJ ONE (02:01)
--- NOTE | 2020-04-21 02:53 | Procedure Note ---
OB Delivery Note - Delivery Date of Delivery: 04/21/20 Surgeon: KATHRIN ABEL Estimated blood loss: other (700 mL) - Section Preop diagnosis: nonreassuring FHR tracing Postop diagnosis: same section procedure: section, primary low transverse Disposition: PACU Narrative: Please see operative report. - Infant A at 1 minute: 7 at 5 minutes: 8 Gender: Female (3214g (7lb 1 oz) @ 0154 am)
--- NOTE | 2020-04-21 02:53 | Post Anesthesia Evaluation ---
- Post Anesthesia Evaluation Patient Participated: Yes Airway Patent: Yes Stable Respiratory Function: Yes Nausea/Vomiting: No Temp > 96.8F: Yes Pain Manageable: Yes Adequeate Hydration: Yes Anesthesia Complications: No Block Receding Appropriately: Yes
--- NOTE | 2020-04-21 03:03 | Operative Report ---
Operative Report Operative Report: Date of procedure: April [id number] Preoperative diagnosis: 1) IUP at 39w6d 2) Nonreassuring heart tones- r epetitive deep variable decels 3) Morbid Obesity BMI 67 4) Gestational Diabetes 5) Gestational Hypertension 6) Diverting Colostomy Postoperative diagnosis: Same Procedure: Primary low transverse section Surgeon: Maritza Dumont M.D. Anesthesia: Regional Findings: 1) Viable female , Apgars 7 and 8, weight 3214 g, (7 lb 1 oz) in cephalic presentation, body cord x 1 2) Normal-appearing uterus ovaries and tubes Estimated blood loss: 700 mL IV fluids: 1000 mL Urine output: 100 mL, clear at the end of the procedure Drains: [place] to gravity Specimens: Placenta to pathology Complications:None. Counts correct x 3 Disposition: Stable to PACU Indication for procedure: Pt is a 34 year old at 39w6d presents for induction secondary to morbid obesity and gestational hypertension. She progressed to 7 cm but began to have repetitive variable decelerations down to the 60s with no further cervical change. The decision was made to proceed with section. Operation in detail: After the risks, benefits, alternatives and complications were explained to the patient she gave informed consent for the procedure. She was subsequently taken to the operating room where regional anesthesia was noted to be adequate. She was subsequently placed in the dorsal supine position with leftward tilt and prepped and draped in a normal sterile fashion. heart tones were noted prior to incision. A timeout was performed. A Pfannenstiel skin incision was made with the knife and carried down to the layer of the fascia with the Bovie. The fascia was incised in the midline and the fascial incision was extended bilaterally with the Bovie. The fascial incision was then stretched. The rectus muscles were then in the midline and partially transected for adequate visualization. The peritoneum was then entered bluntly. The peritoneal incision was extended with good visualization of the bladder. The peritoneal incision was then stretched. An Itz retractor was placed. The bladder blade was then placed. A transverse incision was made in the lower uterine segment with a knife and stretched. head delivered with ease, followed by shoulders and body. bulb suctioned at delivery. Cord clamped and cut. handed to NICU staff in attendance. Cord blood was collected. The placenta was then delivered manually. The uterus was then cleared of all clots and debris. The hysterotomy was then reapproximated with 0 Vicryl in a running locked fashion. A second layer of the same suture was used in imbricating fashion. An additional layer of the same suture was used to obtain hemostasis. The hysterotomy was inspected and hemostasis was noted. The hysterotomy was again inspected and noted to be hemostatic. Surgicel was placed over the hysterotomy. Intercede was placed over the anterior surface of the uterus. The Itz retractor was removed. The peritoneum was reapproximated with 2-0 Vicryl in a rfigure of eight fashion incorporating the rectus muscles. The fascia was reapproximated with 0 Vicryl in a running fashion. The subcutaneous tissue was reapproximated with 3-0 Vicryl in a running fashion. The skin was reapproximated with matt. The incision was then covered with a pressure dressing. The procedure was then ended. The patient tolerated the procedure well and was taken to the PACU in stable condition. All instrument, lap, and needle counts were correct 3.
[2020-04-21] MEDS ORDERED: MAGNESIUM HYDROXIDE (MOM) ORAL LIQD UDC PO PRN (03:59)
[2020-04-21] MEDS ORDERED: SIMETHICONE 80 MG CHEW TAB PO PRN (03:59)
[2020-04-21] MEDS ORDERED: IBUPROFEN 800 MG TAB PO PRN (03:59)
[2020-04-21] MEDS ORDERED: WITCH HAZEL/ GLYCERIN PAD TP PRN (03:59)
[2020-04-21] MEDS ORDERED: LANOLIN/ZINC/DIMETHICONE (LANSINOH) 7 GM TP PRN (03:59)
[2020-04-21] MEDS ORDERED: NALOXONE 0.4 MG/1 ML INJ IV PRN (03:59)
[2020-04-21] MEDS ORDERED: MORPHINE 4 MG/1 ML INJ IV PRN (03:59)
[2020-04-21] MEDS ORDERED: MORPHINE 2 MG/1 ML INJ IV PRN (03:59)
[2020-04-21] MEDS ORDERED: D5W/LACTATED RINGERS 1,000 ML IV SCH (04:00)
[2020-04-21] MEDS ORDERED: OXYTOCIN 20 UNIT/1000ML DRIP 20 UNITS/1,000 ML BAG IV SCH (04:00)
[2020-04-21] MEDS: KETOROLAC 30 MG/1 ML INJ IV SCH ×4 (06:01→22:09)
[2020-04-21] MEDS: ceFAZolin/NS 1 GM/50 ML 1 GM/50 ML BAG IV SCH ×2 (09:06→16:57)
[2020-04-21] MEDS: FERROUS SULFATE 325 MG TAB PO SCH (09:11)
[2020-04-21] MEDS: oxyCODONE /ACETAMINOPHEN 5-325MG TAB PO PRN (14:12)
[2020-04-21 14:51] LABS: Hemoglobin 9.3 gm/dl (10.1-14.3)
[2020-04-22] MEDS ORDERED: MEASLES, MUMPS & RUBELLA 12,500 UNIT/0.5 ML VACCINE SUB-Q ONE (03:05)
[2020-04-22] MEDS ORDERED: DIPHtheria,PERTUSSIS(ACELL),TETANUS VACCINE/PF 0.5 ML VIAL IM ONE (06:00)
[2020-04-22] MEDS: oxyCODONE /ACETAMINOPHEN 5-325MG TAB PO PRN (06:03)
[2020-04-22] MEDS: FERROUS SULFATE 325 MG TAB PO SCH (09:38)
--- NOTE | 2020-04-22 10:35 | Progress Note ---
Subjective Date of service: 04/22/20 Principal diagnosis: IOL for GDM, obesity Interval history: Called to evaluate patient for headache. C/o of diffuse headache worse than incisional pain and neck stiffness. States pain is positional, upright worse than supine, but sitting upright in no acute distress during interview. Denies photophobia, fever, nuchal rigidity, back pain and weakness. Will treat as PDPH with neostigmine/atropine and fiorcet prn. Patient is poor candidate for blood patch and will save this if she fails medical therapy. Objective - Constitutional Vitals: Vital Signs - 12hr 04/22/20 04/22/20 04/22/20 01:02 06:03 08:02 Temperature 98.3 F 98.3 F Pulse Rate 95 H 87 Respiratory 18 20 18 Rate Blood Pressure 155/61 128/77 O2 Sat by Pulse 100 96 Oximetry - Labs CBC & Chem 7: 04/21/20 14:31 04/19/20 20:05 Labs: Abnormal lab results 04/21/20 Range/Units 14:31 Hgb 9.3 L (10.1-14.3) gm/dl Hct 29.0 L (30.3-42.9) %
[2020-04-22] MEDS ORDERED: NEOSTIGMINE 10MG/10 ML INJ MDV IV SCH (11:00)
[2020-04-22] MEDS: BUTALB/ACETAMINOPHEN/CAFFEINE TAB PO PRN ×3 (12:17→20:18)
[2020-04-22] MEDS: NEOSTIGMINE 2 MG, ATROPINE 1 MG in SODIUM CHLORIDE 0.9% 100 ML IV SCH ×2 (12:17→21:53)
[2020-04-22] MEDS ORDERED: SODIUM CHLORIDE 0.9% 500 ML IVPB IV SCH (13:00)
[2020-04-23] MEDS: BUTALB/ACETAMINOPHEN/CAFFEINE TAB PO PRN ×3 (02:19→16:28)
[2020-04-23] MEDS: NEOSTIGMINE 2 MG, ATROPINE 1 MG in SODIUM CHLORIDE 0.9% 100 ML IV SCH (05:32)
--- NOTE | 2020-04-23 05:51 | Progress Note ---
Assessment and Plan POD 1 s/p ltcs for FTP after induction for morbid obesity and GDM. Pt doing well. Continue current care plan Subjective - Subjective Date of service: 04/23/20 Principal diagnosis: IOL for GDM, obesity Interval history: Patient waiting to be seen for wound care/wound vac placement Patient reports: appetite normal, voiding normally, pain well controlled, ambulating normally [place]: doing well Objective - Vital Signs Latest vital signs: Vital Signs Temp Pulse Resp BP BP Pulse Ox 04/23/20 02:19 20 04/23/20 00:00 98.6 F 70 16 105/69 04/22/20 20:18 20 04/22/20 17:12 98.0 F 82 18 138/65 98 04/22/20 08:02 98.3 F 87 18 128/77 96 04/22/20 06:03 20 Intake and Output 04/22/20 04/22/20 04/23/20 14:59 22:59 06:59 Intake Total 103 303 400 Balance 103 303 400 Intake: IV 103 103 Bloxiverz 2 mg Atropine 1 103 103 mg In NaCl 0.9% 100 ml @ 206 mls/hr IV Q8H [facility] Rx #:[id number] Oral 200 400 Other: Total, Intake Amount 200 200 # Voids Void 1 1 1 - Exam Abdomen: Present: normal appearance, soft, other (diverting colostomy) Extremities: Present: normal Incision: Present: normal, dry, intact, dressed
--- NOTE | 2020-04-23 05:54 | Progress Note ---
Assessment and Plan POD 1 s/p ltcs. Doing well. ADvance diet as tolerated. Encourage ambulation. Pt awaiting consult from wound care. Subjective - Subjective Date of service: 04/22/20 Principal diagnosis: IOL for GDM, obesity Interval history: POD 1 s/p ltcs. Pt has no complaints on today. Pain well controlled Patient reports: appetite normal, voiding normally, pain well controlled, ambulating normally : doing well Objective - Vital Signs Latest vital signs: Vital Signs Temp Pulse Resp BP BP Pulse Ox 04/23/20 02:19 20 04/23/20 00:00 98.6 F 70 16 105/69 04/22/20 20:18 20 04/22/20 17:12 98.0 F 82 18 138/65 98 04/22/20 08:02 98.3 F 87 18 128/77 96 04/22/20 06:03 20 Intake and Output 04/22/20 04/22/20 04/23/20 14:59 22:59 06:59 Intake Total 103 303 400 Balance 103 303 400 Intake: IV 103 103 Bloxiverz 2 mg Atropine 1 103 103 mg In NaCl 0.9% 100 ml @ 206 mls/hr IV Q8H [facility] Rx #:[id number] Oral 200 400 Other: Total, Intake Amount 200 200 # Voids Void 1 1 1 - Exam Abdomen: Present: normal appearance, soft, normal bowel sounds Extremities: Present: normal Incision: Present: normal, dry, intact, dressed
[2020-04-23] MEDS: oxyCODONE /ACETAMINOPHEN 5-325MG TAB PO PRN (10:36)
--- NOTE | 2020-04-23 12:31 | Event Note ---
Date: 04/23/20 Pt requesting discharge due to family issues. S/w Dr Dumont...patient ok to leave and follow up on Friday in the office.
[2020-04-23 19:09] VITALS: BP 95/47
== END 2020-04-23 18:54 | disposition home or self-care (01) | DRG 765 ==
LOC: LD 08:49 → OB 04-21 03:58
PROVIDERS: ADMIT Obstetrics & Gynecology; ATTEND Obstetrics & Gynecology
PROC: 10H07YZ Insertion of Other Device into Products of Conception, Via Natural or Artificial Opening (ICD-10-PCS; 2020-04-20)
PROC: 3E0 Administration, Physiological Systems and Anatomical Regions, Introduction (ICD-10-PCS; 2020-04-20)
PROC: 10D00Z1 Extraction of Products of Conception, Low, Open Approach (ICD-10-PCS; principal; 2020-04-21)
PROC: 3E0234Z Introduction of Serum, Toxoid and Vaccine into Muscle, Percutaneous Approach (ICD-10-PCS; 2020-04-21)
PROC: 3E0234Z Introduction of Serum, Toxoid and Vaccine into Muscle, Percutaneous Approach (ICD-10-PCS; 2020-04-22)
PROC: 3E0134Z Introduction of Serum, Toxoid and Vaccine into Subcutaneous Tissue, Percutaneous Approach (ICD-10-PCS; 2020-04-22)
DX: O99.214 Obesity complicating childbirth (principal); O24.429 Gestational diabetes mellitus in childbirth, unspecified control; E66.01 Morbid (severe) obesity due to excess calories; D62 Acute posthemorrhagic anemia; O90.81 Anemia of the puerperium; O99.52 Diseases of the respiratory system complicating childbirth; O76 Abnormality in fetal heart rate and rhythm complicating labor and delivery; O13.4 Gestational [pregnancy-induced] hypertension without significant proteinuria, complicating childbirth; J45.909 Unspecified asthma, uncomplicated; O26.893 Other specified pregnancy related conditions, third trimester; Z3A.39 39 weeks gestation of pregnancy; Z37.0 Single live birth; Z79.899 Other long term (current) drug therapy; Z67.11 Type A blood, Rh negative; Z23 Encounter for immunization
CPT/HCPCS: 36415; 76815; 80053; 82962; 84550; 85014; 85018; 85027; 85461; 86850; 86870; 86900; 86901; 86920; 88307; 90715; G0378; C1765; J0461; J0595; J0690; J1885; J2370; J2590; J2710; J2765; J2790; J3490; J7030; J7040; J7120